=== PATIENT | female | born 1960 | race Caucasian/White ===

== ENCOUNTER 2016-09-06 23:13 | Inpatient (IN) | payer OTHER ==
[~2016-09-06] VITALS: Ht 154.9 cm; Wt 64.8 kg
[2016-09-06] MEDS ORDERED: DiphenhydrAMINE HCL 50 MG/ML VIAL IV STA (23:33)
[2016-09-06] MEDS ORDERED: METOCLOPRAMIDE HCL INJ 5 MG/ML 2 ML VIAL IV STA (23:33)
[2016-09-06] MEDS ORDERED: SODIUM CHLORIDE 0.9% 1000ML 1,000 ML IV STA ×2 (23:33)
[2016-09-06 23:48] LABS: URINE APPEARANCE CLEAR (CLEAR); URINE BILIRUBIN NEG (NEG); URINE COLOR DK YELLOW; URINE EPITHELIAL CELL AUTO >30 /lpf (0-5); URINE NITRITE POS (NEG); URINE PH 6.5 (4.5-7.5); URINE SPECIFIC GRAVITY 1.024 (1.000-1.030); UROBILINOGEN NEG (NEG); ZZUR CULT IF INDIC CLEAN CATCH YES
[2016-09-06 23:55] LABS: MANUAL MICROSCOPIC REQUIRED? NO; REVIEW REQ? NO
[2016-09-07] VITALS (8 sets, daily range): BP systolic 106–143; BP diastolic 62–80; PULSE 68–83; TEMP 37–37.6; O2SAT 95–97; Ht 154.9 cm; Wt 64.8 kg
[2016-09-07] MEDS ORDERED: OPTIRAY 320 IV PRN
[2016-09-07] MEDS ORDERED: LEVO25TA PO (00:13)
[2016-09-07] MEDS ORDERED: LIOT25TA8 PO (00:13)
[2016-09-07] MEDS ORDERED: ZNTT/150 PO (00:14)
[2016-09-07] MEDS ORDERED: OMEP40CA41 PO (00:14)
[2016-09-07] MEDS ORDERED: PRED-301 PO (00:14)
[2016-09-07] MEDS ORDERED: SUCR1TAB29 PO (00:14)
[2016-09-07] MEDS ORDERED: NABU500T3 PO (00:15)
[2016-09-07] MEDS ORDERED: ETAN25IN2 INJ (00:15)
[2016-09-07] MEDS ORDERED: CYAN100020 PO (00:16)
[2016-09-07] MEDS ORDERED: FEXO1TAB58 PO (00:16)
[2016-09-07] MEDS ORDERED: CHOL1000 PO (00:16)
[2016-09-07] MEDS ORDERED: SUMA100T16 PO (00:16)
[2016-09-07 00:51] LABS: INR 1.1 (0.9-1.1); PARTIAL THROMBOPLASTIN RATIO 1.1; PROTHROMBIN TIME (PATIENT) 11.8 SECONDS (9.0-12.0)
[2016-09-07 01:00] LABS: ALT/SGPT 87 U/L (12-78); AST/SGOT 139 U/L (15-37); BLOOD UREA NITROGEN 12 mg/dl (7-18); BUN/CREATININE RATIO 28.3 (10-20); CALCIUM 7.9 mg/dl (8.5-10.1); CARBON DIOXIDE 29 mmol/L (21-32); CHLORIDE 112 mmol/L (98-107); CREATININE 0.41 mg/dl (0.60-1.20); GLUCOSE 83 mg/dl (70-99); MAGNESIUM 1.7 mg/dl (1.8-2.4); SODIUM 146 mmol/L (136-145)
[2016-09-07 01:11] LABS: ALKALINE PHOSPHATASE 106 U/L (45-117)
[2016-09-07 01:24] LABS: HEMATOCRIT 38.5 % (37-47); MEAN CELL VOLUME 84.4 fL (80-100); MEAN CORPUSCULAR HEMOGLOBIN 28.1 pg (25-34); MEAN CORPUSCULAR HGB CONC 33.2 g/dl (32-36); PLATELET COUNT 62 K/uL (130-400); RED BLOOD COUNT 4.56 M/uL (4.2-5.4); WHITE BLOOD COUNT 4.31 K/uL (4.8-10.8)
[2016-09-07 01:26] LABS: BASO % 0.5 %; BASO ABS # 0.02 K/uL (0-0.2); COMPLETE YES; EOS % 2.6 %; LYMPH ABS # 1.38 K/uL (1.2-3.4); MONO % 15.5 %; NEUT % 49.4 %; PLT ESTIMATE DECREASED
--- NOTE | 2016-09-07 03:41 | EMERGENCY ROOM VISIT NOTE ---
History First contact with patient: 23:18 Chief Complaint: ILLNESS Stated Complaint: DEHYDRATION,FATIGUE,WEAKNESS,DIARRHEA History of Present Illness The patient is a 55 year old female who presents to the Emergency Room with complaints of fatigue, weakness, dehydration, lower abdominal cramping with diarrhea for the past day. Patient describe the pain as cramping, ranging in severity 4 out of 10. She is on well water. No recent antibiotics. Several episodes of diarrhea today that is nonbloody nonblack and tarry nonbloody in nature. Patient denies chest pain, dyspnea, fever, chills, vomiting, back pain , urinary symptoms. She is tolerating by mouth fluids but has a lack of appetite. Patient currently being worked up for possible cirrhosis of the liver. She has hepatitis C and treated. No excessive amount of alcohol. No colonoscopy. No history diverticulitis. Review of Systems See HPI for pertinent positives & negatives. A total of 10 systems reviewed and were otherwise negative. Past Medical/Surgical History Medical Problems: (1) Weakness Hepatitis C, rheumatoid arthritis Social History Smoking Status: Former Smoker Alcohol Use: none Drug Use: none Housing Status: lives with family Current/Historical Medications Scheduled Cholecalciferol (Vitamin D3), 1 TAB PO DAILY Cyanocobalamin (Vitamin B12), 1,000 MCG PO DAILY Etanercept (Enbrel), 25 MG INJ 2XWK Fexofenadine-Pseudoephedrine (Yazmin-D 24 Hour Allergy), 1 TAB PO DAILY Levothyroxine Sodium (Synthroid), 25 MCG PO DAILY Liothyronine Sodium (Cytomel), 25 MCG PO DAILY Nabumetone (Relafen), 500 MG PO DAILY Omeprazole (Prilosec), 40 MG PO DAILY Prednisone (Prednisone), 5 MG PO DAILY Ranitidine (Zantac), 150 MG PO DAILY Sucralfate (Carafate), 1 GM PO DAILY Scheduled PRN Sumatriptan Succinate (Imitrex), 100 MG PO UD PRN for Migraine Allergies Coded Allergies: Sulfa Antibiotics (Verified Allergy, Severe, ANAPHYLAXIS, 09/07/16) Sulfamethoxazole w/Trimethoprim (Verified Allergy, Severe, ANAPHYLAXIS, ) Physical Exam Vital Signs Date Time Temp Pulse Resp B/P (MAP) Pulse Ox O2 Delivery O2 Flow Rate FiO2 09/07/16 02:54 78 18 129/75 96 Room Air 09/07/16 01:17 65 18 124/73 100 Room Air 09/06/16 23:16 36.7 82 18 112/61 96 Room Air Physical Exam VITALS: Vitals are noted on the nurse's note and reviewed by myself. Vital signs stable. GENERAL: Pleasant female dehydrated appearing and pale, nondiaphoretic, well- developed well-nourished. SKIN: The skin was without rashes, erythema, edema, or bruising. There is no tenting of the skin. Capillary reflex less than 2 seconds. HEAD: Normocephalic atraumatic. EARS: External auditory canals clear, tympanic membranes pearly givens without erythema or effusion bilaterally. EYES: Pupils equal round and reactive to light and accommodation. Conjunctivae without injection, sclerae without icterus. Extraocular movements intact. NOSE: Patent, turbinates without inflammation or discharge. No sinus tenderness. MOUTH: Mucous membranes mildly dry. Pharynx without erythema or exudate. Uvula midline. Airway patent. Tongue does not deviate. NECK: Supple without nuchal rigidity. No lymphadenopathy. No thyromegaly. Cervical spine is nontender. No JVD. HEART: Regular rate and rhythm without murmurs gallops or rubs. LUNGS: Clear to auscultation bilaterally without wheezes, rales or rhonchi. No dullness to percussion. No retractions or accessory muscle use. ABDOMEN: Positive bowel sounds x 4. Normal tympanic percussion. Soft, tender to palpation lower abdomen, without masses or organomegaly. Julio sign negative. No guarding or rebound tenderness.no CVA tenderness MUSCULOSKELETAL: No muscle atrophy, erythema, or edema noted. NEURO: Patient was alert and oriented to person place and time. Normal sensation to light and sharp touch. No focal neurological deficits. Medical Decision & Procedures Laboratory Results 09/07/16 00:32 Red Blood Count 4.56, Mean Corpuscular Volume 84.4, Mean Corpuscular Hemoglobin 28.1, Mean Corpuscular Hemoglobin Concent 33.2, Mean Platelet Volume 10.0, Neutrophils (%) (Auto) 49.4, Lymphocytes (%) (Auto) 32.0, Monocytes (%) (Auto) 15.5, Eosinophils (%) (Auto) 2.6, Basophils (%) (Auto) 0.5, Neutrophils # (Auto ) 2.13, Lymphocytes # (Auto) 1.38, Monocytes # (Auto) 0.67, Eosinophils # (Auto ) 0.11, Basophils # (Auto) 0.02 09/07/16 00:32 Test 09/06/16 23:25 09/07/16 00:01 09/07/16 00:32 Urine Color DK YELLOW Urine Appearance CLEAR (CLEAR) Urine pH 6.5 (4.5-7.5) Urine Specific [place] 1.024 (1.000-1.030) Urine Protein NEG (NEG) Urine Glucose (UA) NEG (NEG) Urine Ketones NEG (NEG) Urine Occult Blood NEG (NEG) Urine Nitrite POS (NEG) Urine Bilirubin NEG (NEG) Urine Urobilinogen NEG (NEG) Urine Leukocyte Esterase TRACE (NEG) Urine WBC (Auto) 1-5 /hpf (0-5) Urine RBC (Auto) 0-4 /hpf (0-4) Urine Hyaline Casts (Auto) 1-5 /lpf (0-5) Urine Epithelial Cells (Auto) >30 /lpf (0-5) Urine Bacteria (Auto) 4+ (NEG) Bedside Lactic Acid Venous 0.60 mmol/L (0.90-1.70) White Blood Count 4.31 K/uL (4.8-10.8) Red Blood Count 4.56 M/uL (4.2-5.4) Hemoglobin 12.8 g/dL (12.0-16.0) Hematocrit 38.5 % (37-47) Mean Corpuscular Volume 84.4 fL (80-100) Mean Corpuscular Hemoglobin 28.1 pg (25-34) Mean Corpuscular Hemoglobin Concent 33.2 g/dl (32-36) Platelet Count 62 K/uL (130-400) Mean Platelet Volume 10.0 fL (7.4-10.4) Neutrophils (%) (Auto) 49.4 % Lymphocytes (%) (Auto) 32.0 % Monocytes (%) (Auto) 15.5 % Eosinophils (%) (Auto) 2.6 % Basophils (%) (Auto) 0.5 % Neutrophils # (Auto) 2.13 K/uL (1.4-6.5) Lymphocytes # (Auto) 1.38 K/uL (1.2-3.4) Monocytes # (Auto) 0.67 K/uL (0.11-0.59) Eosinophils # (Auto) 0.11 K/uL (0-0.5) Basophils # (Auto) 0.02 K/uL (0-0.2) RDW Standard Deviation 47.2 fL (36.4-46.3) RDW Coefficient of Variation 15.2 % (11.5-14.5) Immature Granulocyte % (Auto) 0.0 % Immature Granulocyte # (Auto) 0.00 K/uL (0.00-0.02) Platelet Estimate DECREASED Red Blood Cell Morphology Unremarkable Prothrombin Time 11.8 SECONDS (9.0-12.0) Prothromb Time International Ratio 1.1 (0.9-1.1) Activated Partial Thromboplast Time 29.0 SECONDS (21.0-31.0) Partial Thromboplastin Ratio 1.1 Anion Gap 5.0 mmol/L (3-11) Est Creatinine Clear Calc Drug Dose 135.9 ml/min Estimated GFR () 136.7 Estimated GFR (Non- 118.0 BUN/Creatinine Ratio 28.3 (10-20) Calcium Level 7.9 mg/dl (8.5-10.1) Magnesium Level 1.7 mg/dl (1.8-2.4) Total Bilirubin 0.8 mg/dl (0.2-1) Aspartate Amino Transf (AST/SGOT) 139 U/L (15-37) Alanine Aminotransferase (ALT/SGPT) 87 U/L (12-78) Alkaline Phosphatase 106 U/L (45-117) Troponin I < 0.015 ng/ml (0-0.045) Total Protein 5.3 gm/dl (6.4-8.2) Albumin 2.7 gm/dl (3.4-5.0) Globulin 2.6 gm/dl (2.5-4.0) Albumin/Globulin Ratio 1.0 (0.9-2) Thyroid Stimulating Hormone (TSH) 1.970 uIu/ml (0.300-4.500) Medications Administered Medications (Trade) Dose Ordered Sig/Montse Route Start Time Stop Time Status Last Admin Dose Admin Sodium Chloride 1,000 ml @ 999 mls/hr Q1H1M STAT IV 09/06/16 23:33 09/07/16 00:33 DC 09/06/16 23:58 999 MLS/HR Sodium Chloride 1,000 ml @ 125 mls/hr Q8H STAT IV 09/06/16 23:33 09/07/16 07:32 09/06/16 23:33 125 MLS/HR Metoclopramide HCl (Reglan Inj) 10 mg NOW STAT IV 09/06/16 23:33 09/06/16 23:37 DC 09/06/16 23:58 10 MG Diphenhydramine HCl (Benadryl Inj) 12.5 mg NOW STAT IV 09/06/16 23:33 09/06/16 23:37 DC 09/06/16 23:58 12.5 MG ED Course Prior records/ancillary studies reviewed. Triage Nursing notes reviewed. Additional history obtained from family. The patient's history was concerning for abdominal pain. Differential diagnosis: Etiologies such as diarrheal illness, C. difficile, electrolyte abnormality, dehydration, appendicitis, diverticulitis, PUD, biliary pathology, UTI, pancreatitis, obstruction, mesenteric ischemia, aortic pathology, infections, inflammatory bowel disease, renal colic, as well as others were entertained. Physical examination findings: As above. ER treatment provided: IV fluids On reassessment the patient felt better. Diagnostics interpreted by me: ECG: Normal sinus, normal intervals, no acute ST-T wave changes. Impression normal sinus rhythm interpreted by myself The labs revealed thrombocytopenia. Negative lactic acid, elevated LFTs. Normal coags Imaging studies: CT concerning for colitis Consultation: A consultation was placed with the hospitalist, Dr. Lozano the case was discussed and diagnostics were reviewed. The patient was evaluated in the ER for further treatment. Exam and history seem consistent with weakness, diarrhea and possible colitis. Patient was still externally week. She will be evaluated by medicine for possible admission. She is unable to give a stool specimen. She was hydrated as above. Patient has known hep C and most likely her elevated LFTs are from this. By the evaluation outlined above emergent etiologies such as appendicitis, diverticulitis, PUD, biliary pathology, UTI, pancreatitis, obstruction, mesenteric ischemia, aortic pathology, renal colic, as well as others were deemed relatively unlikely. The pt informed about the findings as listed above. All questions were answered and pleased with the treatment. Case reviewed with my attending. Medical Decision As above Impression Primary Impression: Weakness Additional Impressions: Diarrhea Colitis Thrombocytopenia Departure Information Dispostion Being Evaluated By Hospitalist Condition FAIR Referrals No Doctor, Assigned (PCP) Patient Instructions My [facility] Problem Qualifiers Additional Impressions: Diarrhea Diarrhea type: unspecified type Qualified Codes: R19.7 - Diarrhea, unspecified
[2016-09-07] MEDS: MAGNESIUM SULFATE 1GM / D5W 1 GM in PREMIXED IN D5W 100 ML IV SCH ×2 (03:45→04:45)
[2016-09-07] MEDS ORDERED: MAGNESIUM SULFATE 1GM / D5W 1 GM BAG ONE (04:30)
[2016-09-07] MEDS ORDERED: ONDANSETRON INJ 2 MG/ML 2 ML VIAL IV PRN (04:45)
[2016-09-07] MEDS ORDERED: MoRPHine SULFATE 2 MG/ML CARP IV PRN (05:00)
[2016-09-07] MEDS ORDERED: HYDROCODONE/ACETAMOPHEN 5/325MG TAB PO PRN (05:00)
--- NOTE | 2016-09-07 05:17 | History and Physical ---
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 The weakness has been ongoing as she suffers from uncontrolled joint pain from her RA. Approximately 6 months ago she was taken off narcotics and has been doing poorly with a very poor QOL since per her . She was recently seen by Dr. Da Silva in the [facility] clinic for consideration of antiviral therapy for HCV. For the last two days, she reports low PO intake, no vomiting or nausea, the presence of a sharp abdominal pain that doesn't radiate and is located around her umbilicus, no UTI symptoms such as dysuria or urgency, no chest pain or shortness of breath. She reports a headache that is generalized and has a h/o migraines. Head CT was performed and is negative for acute intracranial process. She is mentating well, however, is very lethargic as she was just given Benadryl for a headache here in the ER. reports about 8 BM. She denies recent antibiotic use and hasn't had a colonoscopy. Last hospitalization was in [facility] in [place], [place] for a MRSA wound infection around her breast, which is well-healed. She does drink well water. denies any recent travel. CT a/p reveals diffuse colonic mural thickening consistent with colitis. She is on an NSAID chronically for her arthritis which is known to cause diarrhea. She also reports increased pain in her hands, nicki in MCP joints consistent with a flare x 2 weeks. She reports not being able to get ahold of her Occupational Therapy Asst in [place], but states that she was scheduled to see him as an outpatient later this week. She recently moved back to the area and lives with her in [place]. She has tried to establish care here with a PCP, but no one will take her per . Past Medical/Surgical History Medical Problems: (1) Ambulatory dysfunction Status: Chronic (2) Chronic pain Status: Chronic (3) Cirrhosis Status: Chronic (4) GERD (gastroesophageal reflux disease) Status: Chronic (5) H/O methicillin resistant Staphylococcus aureus Status: Chronic (6) H/O peptic ulcer Status: Chronic (7) HCV (hepatitis C virus) Status: Chronic (8) Hypothyroidism Status: Chronic (9) Juvenile rheumatoid arthritis Status: Chronic (10) Migraine Status: Chronic (11) Weakness Status: Chronic Surgical Problems: (1) H/O: Status: Chronic (2) S/P shoulder replacement Status: Chronic (3) Status post incision and drainage Status: Chronic Family History FH: cancer FATHER Social History Smoking Status: Former Smoker Smokeless Tobacco Use: No Alcohol Use: none Drug Use: none Marital Status: Housing status: lives with significant other Occupational Status: unemployed Immunizations History of Influenza Vaccine: Yes Influenza Vaccine Date: Oct 19, 2014 History of Tetanus Vaccine?: Unknown History of Pneumococcal: Yes Pneumococcal Date: Oct 19, 2014 History of Hepatitis B Vaccine: Unknown Multi-Drug Resistant Organisms History of MDRO: Yes Type of MDRO: MRSA Allergies Coded Allergies: Sulfa Antibiotics (Verified Allergy, Severe, ANAPHYLAXIS, 09/07/16) Sulfamethoxazole w/Trimethoprim (Verified Allergy, Severe, ANAPHYLAXIS, ) Home Medications Scheduled Cholecalciferol (Vitamin D3), 1 TAB PO DAILY Cyanocobalamin (Vitamin B12), 1,000 MCG PO DAILY Etanercept (Enbrel), 25 MG INJ 2XWK Fexofenadine-Pseudoephedrine (Yazmin-D 24 Hour Allergy), 1 TAB PO DAILY Levothyroxine Sodium (Synthroid), 25 MCG PO DAILY Liothyronine Sodium (Cytomel), 25 MCG PO DAILY Nabumetone (Relafen), 500 MG PO DAILY Omeprazole (Prilosec), 40 MG PO DAILY Prednisone (Prednisone), 5 MG PO DAILY Ranitidine (Zantac), 150 MG PO DAILY Sucralfate (Carafate), 1 GM PO DAILY Scheduled PRN Sumatriptan Succinate (Imitrex), 100 MG PO UD PRN for Migraine Review of Systems At least ten systems reviewed and negative except as indicated in HPI. Physical Exam Vital Signs Date Time Temp Pulse Resp B/P (MAP) Pulse Ox O2 Delivery O2 Flow Rate FiO2 09/07/16 04:38 81 18 111/68 96 Room Air 09/07/16 02:54 78 18 129/75 96 Room Air 09/07/16 01:17 65 18 124/73 100 Room Air 09/06/16 23:16 36.7 82 18 112/61 96 Room Air GEN: WNWD, in no acute distress, alert and appropriate but easily falls asleep/ lethargic after benadryl HEENT: NC/AT, PERRL, normal non-icteric sclerae, MMM, pharynx non-acute, no LAD CARDIO: reg rate, S1/2 heard without m/g/r LUNGS: coarse breath sounds throughout all lung farley, no rales or wheezes, poor effort ABD: soft, TTP in LLQ, +BS, non-distended, no rebound or guarding EXTREMITY: RP and DP palpable 2+ bilat, no LE swelling or edema, extremities are warm and well-perfused NEURO: no gross focal deficits, but limited evaluation as patient mostly asleep MUSC: moves all extremities equally SKIN: warm and dry, no jaundice. Healed scars around L breast area. Diagnostics Laboratory Results 09/07/16 00:32 Red Blood Count 4.56, Mean Corpuscular Volume 84.4, Mean Corpuscular Hemoglobin 28.1, Mean Corpuscular Hemoglobin Concent 33.2, Mean Platelet Volume 10.0, Neutrophils (%) (Auto) 49.4, Lymphocytes (%) (Auto) 32.0, Monocytes (%) (Auto) 15.5, Eosinophils (%) (Auto) 2.6, Basophils (%) (Auto) 0.5, Neutrophils # (Auto ) 2.13, Lymphocytes # (Auto) 1.38, Monocytes # (Auto) 0.67, Eosinophils # (Auto ) 0.11, Basophils # (Auto) 0.02 09/07/16 00:32 Test 09/06/16 23:25 09/07/16 00:01 09/07/16 00:32 09/07/16 04:55 Urine Color DK YELLOW Urine Appearance CLEAR (CLEAR) Urine pH 6.5 (4.5-7.5) Urine Specific [place] 1.024 (1.000-1.030) Urine Protein NEG (NEG) Urine Glucose (UA) NEG (NEG) Urine Ketones NEG (NEG) Urine Occult Blood NEG (NEG) Urine Nitrite POS (NEG) Urine Bilirubin NEG (NEG) Urine Urobilinogen NEG (NEG) Urine Leukocyte Esterase TRACE (NEG) Urine WBC (Auto) 1-5 /hpf (0-5) Urine RBC (Auto) 0-4 /hpf (0-4) Urine Hyaline Casts (Auto) 1-5 /lpf (0-5) Urine Epithelial Cells (Auto) >30 /lpf (0-5) Urine Bacteria (Auto) 4+ (NEG) Bedside Lactic Acid Venous 0.60 mmol/L (0.90-1.70) White Blood Count 4.31 K/uL (4.8-10.8) Red Blood Count 4.56 M/uL (4.2-5.4) Hemoglobin 12.8 g/dL (12.0-16.0) Hematocrit 38.5 % (37-47) Mean Corpuscular Volume 84.4 fL (80-100) Mean Corpuscular Hemoglobin 28.1 pg (25-34) Mean Corpuscular Hemoglobin Concent 33.2 g/dl (32-36) Platelet Count 62 K/uL (130-400) Mean Platelet Volume 10.0 fL (7.4-10.4) Neutrophils (%) (Auto) 49.4 % Lymphocytes (%) (Auto) 32.0 % Monocytes (%) (Auto) 15.5 % Eosinophils (%) (Auto) 2.6 % Basophils (%) (Auto) 0.5 % Neutrophils # (Auto) 2.13 K/uL (1.4-6.5) Lymphocytes # (Auto) 1.38 K/uL (1.2-3.4) Monocytes # (Auto) 0.67 K/uL (0.11-0.59) Eosinophils # (Auto) 0.11 K/uL (0-0.5) Basophils # (Auto) 0.02 K/uL (0-0.2) RDW Standard Deviation 47.2 fL (36.4-46.3) RDW Coefficient of Variation 15.2 % (11.5-14.5) Immature Granulocyte % (Auto) 0.0 % Immature Granulocyte # (Auto) 0.00 K/uL (0.00-0.02) Platelet Estimate DECREASED Red Blood Cell Morphology Unremarkable Prothrombin Time 11.8 SECONDS (9.0-12.0) Prothromb Time International Ratio 1.1 (0.9-1.1) Activated Partial Thromboplast Time 29.0 SECONDS (21.0-31.0) Partial Thromboplastin Ratio 1.1 Anion Gap 5.0 mmol/L (3-11) Est Creatinine Clear Calc Drug Dose 135.9 ml/min Estimated GFR () 136.7 Estimated GFR (Non- 118.0 BUN/Creatinine Ratio 28.3 (10-20) Calcium Level 7.9 mg/dl (8.5-10.1) Magnesium Level 1.7 mg/dl (1.8-2.4) Total Bilirubin 0.8 mg/dl (0.2-1) Aspartate Amino Transf (AST/SGOT) 139 U/L (15-37) Alanine Aminotransferase (ALT/SGPT) 87 U/L (12-78) Alkaline Phosphatase 106 U/L (45-117) Troponin I < 0.015 ng/ml (0-0.045) Total Protein 5.3 gm/dl (6.4-8.2) Albumin 2.7 gm/dl (3.4-5.0) Globulin 2.6 gm/dl (2.5-4.0) Albumin/Globulin Ratio 1.0 (0.9-2) Thyroid Stimulating Hormone (TSH) 1.970 uIu/ml (0.300-4.500) Date/Time Source Procedure Growth Status 09/07/16 04:55 Stool C.difficile Toxin B Gene (PCR) Pending Received 09/06/16 23:25 Urine , Clean Catch Urine Culture Pending Received Results Past 24 Hours Test 09/06/16 23:25 09/07/16 00:01 09/07/16 00:32 Range/Units Urine Color DK YELLOW Urine Appearance CLEAR CLEAR Urine pH 6.5 4.5-7.5 Urine Specific [place] 1.024 1.000-1.030 Urine Protein NEG NEG Urine Glucose (UA) NEG NEG Urine Ketones NEG NEG Urine Occult Blood NEG NEG Urine Nitrite POS NEG Urine Bilirubin NEG NEG Urine Urobilinogen NEG NEG Urine Leukocyte Esterase TRACE NEG Urine WBC (Auto) 1-5 0-5 /hpf Urine RBC (Auto) 0-4 0-4 /hpf Urine Hyaline Casts (Auto) 1-5 0-5 /lpf Urine Epithelial Cells (Auto) >30 0-5 /lpf Urine Bacteria (Auto) 4+ NEG Bedside Lactic Acid Venous 0.60 0.90-1.70 mmol/L White Blood Count 4.31 4.8-10.8 K/uL Red Blood Count 4.56 4.2-5.4 M/uL Hemoglobin 12.8 12.0-16.0 g/dL Hematocrit 38.5 37-47 % Mean Corpuscular Volume 84.4 80-100 fL Mean Corpuscular Hemoglobin 28.1 25-34 pg Mean Corpuscular Hemoglobin Concent 33.2 32-36 g/dl Platelet Count 62 130-400 K/uL Mean Platelet Volume 10.0 7.4-10.4 fL Neutrophils (%) (Auto) 49.4 % Lymphocytes (%) (Auto) 32.0 % Monocytes (%) (Auto) 15.5 % Eosinophils (%) (Auto) 2.6 % Basophils (%) (Auto) 0.5 % Neutrophils # (Auto) 2.13 1.4-6.5 K/uL Lymphocytes # (Auto) 1.38 1.2-3.4 K/uL Monocytes # (Auto) 0.67 0.11-0.59 K/uL Eosinophils # (Auto) 0.11 0-0.5 K/uL Basophils # (Auto) 0.02 0-0.2 K/uL RDW Standard Deviation 47.2 36.4-46.3 fL RDW Coefficient of Variation 15.2 11.5-14.5 % Immature Granulocyte % (Auto) 0.0 % Immature Granulocyte # (Auto) 0.00 0.00-0.02 K/uL Platelet Estimate DECREASED Red Blood Cell Morphology Unremarkable Prothrombin Time 11.8 9.0-12.0 SECONDS Prothromb Time International Ratio 1.1 0.9-1.1 Activated Partial Thromboplast Time 29.0 21.0-31.0 SECONDS Partial Thromboplastin Ratio 1.1 Sodium Level 146 136-145 mmol/L Potassium Level 4.0 3.5-5.1 mmol/L Chloride Level 112 98-107 mmol/L Carbon Dioxide Level 29 21-32 mmol/L Anion Gap 5.0 3-11 mmol/L Blood Urea Nitrogen 12 7-18 mg/dl Creatinine 0.41 0.60-1.20 mg/dl Est Creatinine Clear Calc Drug Dose 135.9 ml/min Estimated GFR () 136.7 Estimated GFR (Non- 118.0 BUN/Creatinine Ratio 28.3 10-20 Random Glucose 83 70-99 mg/dl Calcium Level 7.9 8.5-10.1 mg/dl Magnesium Level 1.7 1.8-2.4 mg/dl Total Bilirubin 0.8 0.2-1 mg/dl Aspartate Amino Transf (AST/SGOT) 139 15-37 U/L Alanine Aminotransferase (ALT/SGPT) 87 12-78 U/L Alkaline Phosphatase 106 45-117 U/L Troponin I < 0.015 0-0.045 ng/ml Total Protein 5.3 6.4-8.2 gm/dl Albumin 2.7 3.4-5.0 gm/dl Globulin 2.6 2.5-4.0 gm/dl Albumin/Globulin Ratio 1.0 0.9-2 Thyroid Stimulating Hormone (TSH) 1.970 0.300-4.500 uIu/ml Microbiology Results 09/06/16 Urine Culture, Received Pending Diagnostic Radiology CT a/p: diffuse colonic mural thickening consistent with colitis; cirrhosis with nodular liver; portal HTN; splenomegaly CT head: no acute IC process EKG SR 72, no St changes. Impression Assessment and Plan 55 yo F with acute diarrhea and nonspecific colitis. 1. Colitis with diarrhea-etiologies includes but not limited to infectious, inflammatory, ischemic less likely with normal lactate, or adverse drug effect from Nabumetone. Stool studies ordered, will cover empirically with Cipro/ Flagyl. Consulted GI for assistance in setting of other chronic GI issues. Cont supportive care with IVF until patient tolerating PO better, antiemetics and pain control as needed. Hold NSAIDs at this time. 2. Weakness-severe and is related to her chronic pain from her RA. PT/OT to evaluate 3. Chronic pain 2/2 RA-currently reports flare x 2 weeks. Taking daily NSAIDs , however, this is not helping. On prednisone 5mg PO daily at baseline. Consider Rheum consult to help with flare. Pt continues on Enbrel twice weekly. 4. Ambulatory dysfunction 2/2 comorbidities-PT/OT to evaluate; d/c planning assistance to help with needs around the home. 5. Cirrhosis-appears compensated, mild elevation in LFTs, no elev in bilirubin , abdominal pain is not generalized and no pain in RUQ. Currently in the process of workup as outpatient per GI-pt denies any fluid retention or weight gain and exhibits no confusion 6. HCV-untreated at this point. 7. Hypomagnesemia 2/2 diarrhea-replace IV 8. Asymptomatic bacteriuria-covering empirically with Cipro (above) while awaiting culture results. 9. h/o MRSA 10. thrombocytopenia-chronic, poss related to cirrhosis DVT proph-SCDs, thrombocytopenia FULL CODE Dispo-to med/surg. DO Rodney BatistaPalmdale Regional Medical Centerist Level of Care Med/Surg Resuscitation Status FULL RESUSCITATION VTE Prophylaxis VTE Risk Assessment Done? Y/N: Yes Risk Level: Moderate Given or contraindicated: SCD's, Contraindicated
--- NOTE | 2016-09-07 06:51 | DIAGNOSTIC IMAGING REPORT ---
CHEST ONE VIEW PORTABLE CLINICAL HISTORY: weakness, coarse breath sounds on exam throughout COMPARISON STUDY: No previous studies for comparison. FINDINGS: The heart is the upper limits of normal in size. There is mild interstitial thickening. There is no lobar consolidation. There are no pleural effusions. There are postsurgical changes involving the right shoulder.[ IMPRESSION: Mild interstitial thickening. No evidence of focal pulmonary consolidation Electronically signed by: Vincent Rodrigues M.D. 09/07/2016 6:49 AM Dictated Date/Time: 09/07/2016 6:49 AM
--- NOTE | 2016-09-07 07:05 | DIAGNOSTIC IMAGING REPORT ---
CT HEAD WITHOUT CONTRAST (CT) CLINICAL HISTORY: Severe headache COMPARISON STUDY: No previous studies for comparison. TECHNIQUE: Axial CT of the brain is performed from the vertex to the skull base. IV contrast was not administered for this examination. CT DOSE: 537.48 mGy.cm FINDINGS: No intra or extra-axial mass lesions are visualized. There is no CT evidence of acute cortical infarction. There is no evidence of midline shift. There is no acute hemorrhage. No calvarial fractures are visualized. There is disconjugate ocular gaze There is no evidence of pathologic ventricular dilatation. There is no evidence of acute sinusitis IMPRESSION: Disconjugate ocular gaze. No acute intracranial findings. Electronically signed by: Vincent Rodrigues M.D. 09/07/2016 7:04 AM Dictated Date/Time: 09/07/2016 7:03 AM
--- NOTE | 2016-09-07 07:20 | DIAGNOSTIC IMAGING REPORT ---
ABD/PELVIS IV CONTRAST ONLY HISTORY:55 yearsFemalelower abd pain, acute in onset. COMPARISON: Chest radiograph of same day TECHNIQUE: Multiple axial CT images of the abdomen and pelvis were obtained following the intravenous administration of 115 mL Optiray 320. FINDINGS: There are scattered probably peripheral Reclast opacities of the lung bases with areas of mosaic attenuation suggesting atelectasis with some air trapping. Evaluation of the lung bases is limited secondary to patient motion. No pneumoperitoneum is identified. Inferior cardiac chambers appear unremarkable. There is mild marginal nodularity of the liver with trace perihepatic ascites. Mild periportal edema is also noted. The spleen is enlarged measuring up to 16 cm in length. The gallbladder, pancreas and adrenal glands appear to be within normal limits. There are prominent hepatorenal varices noted with additional smaller varices seen near the oksana hepatis. There is a 3 mm nonobstructing calculus of the superior pole left kidney. 5 mm low attenuating lesion of the superior pole right kidney is too small to characterize however would statistically favor a benign cyst. No hydronephrosis. The urinary bladder is unremarkable. Prior hysterectomy. Small cystic lesion of the left adnexum, 2.0 x 1.2 cm is nonspecific. There is moderate atherosclerotic plaquing of the abdominal aorta and branch vessels. No pathologic adenopathy is identified. There is no bowel obstruction. Trace pelvic ascites is noted. There is mucosal hyperemia with circumferential wall thickening involving the majority of the colon. There is no evidence of acute appendicitis. The appendix is seen nicely on image 59 of the axial series and appears to be noninflamed and nondilated. The soft tissues are unremarkable. Multiple injection granulomas involve the subcutaneous tissues of the bilateral buttocks. The bones are intact. Large kraft node involves the superior endplate of L3. IMPRESSION: 1. Mild surface nodularity of the liver with splenomegaly and trace abdominal and pelvic ascites suggests cirrhotic liver disease with stigmata of portal hypertension. Correlate with LFTs. 2. Circumferential wall thickening involving the majority of the colon may be secondary to underlying hypoproteinemia or colitis from infectious or inflammatory cause. 3. 3 mm nonobstructing calculus of the superior pole left kidney. 4. Prior hysterectomy. The above report was generated using voice recognition software. It may contain grammatical, syntax or spelling errors. Electronically signed by: Scot Sol M.D. 09/07/2016 7:19 AM Dictated Date/Time: 09/07/2016 7:08 AM
[2016-09-07] MEDS: METRONIDAZOLE / NSS 500 MG in PREMIXED NSS 100 ML IV SCH ×3 (07:28→23:39)
[2016-09-07] MEDS: SODIUM CHLORIDE 0.9% 1000ML 1,000 ML IV SCH ×2 (07:29→14:35)
[2016-09-07] MEDS: LEVOTHYROXINE 25 MCG TAB PO SCH (07:29)
[2016-09-07] MEDS: PANTOprazole SOD 40 MG TAB PO SCH (07:30)
[2016-09-07] MEDS: RANITIDINE HCL 150 MG TAB PO SCH (07:30)
[2016-09-07] MEDS: LIOTHYRONINE SODIUM 25 MCG TAB PO SCH (07:30)
[2016-09-07] MEDS: [UNRECOGNIZED DRUG - OTHER] SCH ×2 (09:30→16:00)
[2016-09-07] MEDS: CIPROFLOXACIN / D5W 400 MG in PREMIXED IN D5W 200 ML IV SCH ×2 (09:30→20:13)
--- NOTE | 2016-09-07 12:56 | Gastrointestinal Consultation ---
Gastrointestinal Consultation Date of Consultation: Sep 07, 2016 Attending Physician: Julianne Gage Consulting Physician: Earnest Altman Reason for Consultation: Colitis, cirrhosis, HCV History of Present Illness Patient is a 55 year old female w Genotype 3a, F4 fibrosis (cirrhosis), HCV established w Dr. Glaser in GI office, seen for diarrhea. She started having profuse watery diarrhea 2 days prior to admission. Rentz very weak, and having assocaited abd pain around periumbilical area. She denies any n/v, dysuria, fever, chills, CP, SOB. She does have migraine HAs, CT head on admission negative. Denies any sick contact, no well water. Cdiff negative. Stool cx and Giardia pending. CT abd/pelvis showed: 1. Mild surface nodularity of the liver with splenomegaly and trace abdominal and pelvic ascites suggests cirrhotic liver disease with stigmata of portal hypertension. Correlate with LFTs. 2. Circumferential wall thickening involving the majority of the colon may be secondary to underlying hypoproteinemia or colitis from infectious or inflammatory cause. 3. 3 mm nonobstructing calculus of the superior pole left kidney. 4. Prior hysterectomy. Labs reviewed: H/H stable, Plt low at 62, no coagulopathy. CMP showed low Ca and Mg, BUN/Cr normal. LFTs elevated but at baseline: Tbili 0.8, AST/ALT 139/87 , AP 106. Never had EGD for variceal screening or colonoscopy before - had refused them in the past for no specific reasons. Past Medical/Surgical History Medical Problems: (1) Colitis Status: Acute (2) Diarrhea Status: Acute (3) Thrombocytopenia Status: Acute Past Medical History: Juvenile RA GERD MRSA PUD Hypothyroidism Past Surgical History: Csection Shoulder replacement I&D Family History FH: cancer FATHER Social History Smoking Status: Never Smoker Alcohol Use: none Drug Use: none Marital Status: Housing Status: lives with family Occupation Status: unemployed Allergies Coded Allergies: Sulfa Antibiotics (Verified Allergy, Severe, ANAPHYLAXIS, 09/07/16) Sulfamethoxazole w/Trimethoprim (Verified Allergy, Severe, ANAPHYLAXIS, ) Current Medications Home Meds and Scripts Medications Dose Route/Sig Max Daily Dose Days Date Category Dose Instructions Vitamin B12 (Cyanocobalamin) 1,000 Mcg Tab 1,000 Mcg PO DAILY 09/07/16 Reported Vitamin D3 (Cholecalciferol) 1,000 Unit Tab 1 Tab PO DAILY 90 09/07/16 Reported Imitrex (Sumatriptan Succinate) 100 Mg Tab 100 Mg PO UD PRN 09/07/16 Reported Yazmin-D 24 Hour Allergy (Fexofenadine-Pseudoephedrine) 1 Tab Tab 1 Tab PO DAILY 30 09/07/16 Reported Enbrel (Etanercept) 25 Mg Inj 25 Mg INJ 2XWK 09/07/16 Reported TUESDAYS & FRIDAYS Relafen (Nabumetone) 500 Mg Tab 500 Mg PO DAILY 09/07/16 Reported Zantac (Ranitidine HCl) 150 Mg Tab 150 Mg PO DAILY 09/07/16 Reported Prilosec (Omeprazole) 40 Mg Cap 40 Mg PO DAILY 09/07/16 Reported Carafate (Sucralfate) 1 Gm Tab 1 Gm PO DAILY 09/07/16 Reported Prednisone 5 Mg Tab 5 Mg PO DAILY 09/07/16 Reported Synthroid (Levothyroxine Sodium) 25 Mcg Tab 25 Mcg PO DAILY 09/07/16 Reported Cytomel (Liothyronine Sodium) 25 Mcg Tab 25 Mcg PO DAILY 09/07/16 Reported Review of Systems Constitutional: No fever, No chills Respiratory: No cough, No shortness of breath Cardiac: No chest pain Abdomen: + see HPI, + pain, + diarrhea (No BMs since admission recorded), No nausea, No vomiting Female : No dysuria, No urinary frequency Endo: + fatigue Physical Exam Date Time Temp Pulse Resp B/P (MAP) Pulse Ox O2 Delivery O2 Flow Rate FiO2 09/07/16 11:51 37.6 77 14 116/77 (90) 96 Room Air 09/07/16 08:30 97 Room Air 09/07/16 07:49 37.1 83 16 114/78 (90) 97 Room Air 09/07/16 05:40 37.5 76 18 143/73 95 Room Air 09/07/16 04:38 81 18 111/68 96 Room Air 09/07/16 02:54 78 18 129/75 96 Room Air 09/07/16 01:17 65 18 124/73 100 Room Air 09/06/16 23:16 36.7 82 18 112/61 96 Room Air General Appearance: WD/WN, no apparent distress Eyes: normal inspection, PERRL, EOMI Neck: supple, no JVD, trachea midline Respiratory/Chest: normal breath sounds, no respiratory distress, no accessory muscle use Cardiovascular: regular rate, rhythm, no gallop, no murmur Abdomen: normal bowel sounds, non tender, soft Extremities: normal inspection, no pedal edema, no calf tenderness Neurologic/Psych: alert, normal mood/affect, oriented x 3 Skin: normal color, no jaundice, no rash Laboratory Results Last 24 Hours Test 09/06/16 23:25 09/07/16 00:01 09/07/16 00:02 09/07/16 00:32 Urine Color DK YELLOW Urine Appearance CLEAR Urine pH 6.5 Urine Specific [place] 1.024 Urine Protein NEG Urine Glucose (UA) NEG Urine Ketones NEG Urine Occult Blood NEG Urine Nitrite POS Urine Bilirubin NEG Urine Urobilinogen NEG Urine Leukocyte Esterase TRACE Urine WBC (Auto) 1-5 /hpf Urine RBC (Auto) 0-4 /hpf Urine Hyaline Casts (Auto) 1-5 /lpf Urine Epithelial Cells (Auto) >30 /lpf Urine Bacteria (Auto) 4+ Bedside Lactic Acid Venous 0.60 mmol/L Bedside Troponin I ng/ml White Blood Count 4.31 K/uL Red Blood Count 4.56 M/uL Hemoglobin 12.8 g/dL Hematocrit 38.5 % Mean Corpuscular Volume 84.4 fL Mean Corpuscular Hemoglobin 28.1 pg Mean Corpuscular Hemoglobin Concent 33.2 g/dl Platelet Count 62 K/uL Mean Platelet Volume 10.0 fL Neutrophils (%) (Auto) 49.4 % Lymphocytes (%) (Auto) 32.0 % Monocytes (%) (Auto) 15.5 % Eosinophils (%) (Auto) 2.6 % Basophils (%) (Auto) 0.5 % Neutrophils # (Auto) 2.13 K/uL Lymphocytes # (Auto) 1.38 K/uL Monocytes # (Auto) 0.67 K/uL Eosinophils # (Auto) 0.11 K/uL Basophils # (Auto) 0.02 K/uL RDW Standard Deviation 47.2 fL RDW Coefficient of Variation 15.2 % Immature Granulocyte % (Auto) 0.0 % Immature Granulocyte # (Auto) 0.00 K/uL Platelet Estimate DECREASED Red Blood Cell Morphology Unremarkable Prothrombin Time 11.8 SECONDS Prothromb Time International Ratio 1.1 Activated Partial Thromboplast Time 29.0 SECONDS Partial Thromboplastin Ratio 1.1 Sodium Level 146 mmol/L Potassium Level 4.0 mmol/L Chloride Level 112 mmol/L Carbon Dioxide Level 29 mmol/L Anion Gap 5.0 mmol/L Blood Urea Nitrogen 12 mg/dl Creatinine 0.41 mg/dl Est Creatinine Clear Calc Drug Dose 135.9 ml/min Estimated GFR () 136.7 Estimated GFR (Non- 118.0 BUN/Creatinine Ratio 28.3 Random Glucose 83 mg/dl Calcium Level 7.9 mg/dl Magnesium Level 1.7 mg/dl Total Bilirubin 0.8 mg/dl Aspartate Amino Transf (AST/SGOT) 139 U/L Alanine Aminotransferase (ALT/SGPT) 87 U/L Alkaline Phosphatase 106 U/L Troponin I < 0.015 ng/ml Total Protein 5.3 gm/dl Albumin 2.7 gm/dl Globulin 2.6 gm/dl Albumin/Globulin Ratio 1.0 Thyroid Stimulating Hormone (TSH) 1.970 uIu/ml Test 09/07/16 04:55 09/07/16 11:58 Ammonia 35.0 umol/L Impression Patient is a 55 year old female w HCV, cirrhosis (MELD 7), currently admitted for acute diarrhea. Stool cx, Giardia pending. Cdiff negative. CT abd/pelvis showed circumferential wall thickening involving the majority of the colon may be secondary to underlying hypoproteinemia or colitis from infectious or inflammatory cause. Plan - Continue Cipro/Flagyl for at least 7-10 days - F/U Giardia and Stool cx results. Cdiff negative. - She will need EGD for variceal screening and also Colonoscopy to r/o IBD. These can be done in outpt setting. In fact should wait at least 7 days after Cipro/Flagyl started before we should prep her for the colonoscopy. - HCV: Genotype 3a, F4 fibrosis. She will need to f/u w Dr. Glaser on 10/13 to determine if she is an eligible candidate for treatment (possibly Epclusa x 12 weeks). Her compliance was questionable I have personally seen the patient with SABI Triplett on 09/07/2016. Her note reflects my exam and findings. I agree with her impression and plan. Will need out patient colonoscopy. Earnest Altman M.D.
--- NOTE | 2016-09-07 15:07 | Progress Note ---
Internal Med Progress Note Date of Service: Sep 07, 2016. Provider Documentation: SUBJECTIVE: The patient was seen and examined Very lethargic and drowsy Falls asleep while talking to me Denies any other distress OBJECTIVE: Vital Signs-as noted below Exam: General-No distress at rest Very drowsy and sleepy Eyes-normal ENT-normal Neck-supple Lungs-Clear to ausucltate bilaterally Heart-Regular,no murmur appreciated Abdomen-Benign,no masses ,bowel sound present Extremities-Trace edema bilaterally Has severe rheumatoid changes in hands Neuro-AA Very weak and lethargic Lab data as noted below. ASSESSMENT & PLAN: Gil Colitis Could be infectious, inflammatory, ischemic less likely with normal lactate, or adverse drug effect from Nabumetone. Stool studies ordered-negative Started on Cipro/Flagyl. Appreciate GI input and recommendation Still having diarrhea Weakness and Drowsiness Likely from Medication for chronic pain secondary to RA. Cirrhosis ,Hep C Ammonia level-35 PT/OT to evaluate Cirrhosis secondary to Hep C Cirrhosis-appears compensated, mild elevation in LFTs, Hepatitis C virus load very high Awaiting evaluation for starting treatment as an OP has Thrombocytopenia Chronic pain 2/2 RA-currently reports flare x 2 weeks. Taking daily NSAIDs, however, this is not helping. Sees Dr Chamorro in [place] Rhe[facility] consult to help with flare. Pt continues on Enbrel twice weekly. Asymptomatic bacteriuria-covering empirically with Cipro (above) while awaiting culture results. h/o MRSA DVT proph-SCDs, thrombocytopenia FULL CODE Dispo-to med/surg. Vital Signs: Date Time Temp Pulse Resp B/P (MAP) Pulse Ox O2 Delivery O2 Flow Rate FiO2 09/07/16 14:52 37.2 70 18 122/80 (94) 97 Room Air 09/07/16 11:51 37.6 77 14 116/77 (90) 96 Room Air 09/07/16 08:30 97 Room Air 09/07/16 07:49 37.1 83 16 114/78 (90) 97 Room Air 09/07/16 05:40 37.5 76 18 143/73 95 Room Air 09/07/16 04:38 81 18 111/68 96 Room Air 09/07/16 02:54 78 18 129/75 96 Room Air 09/07/16 01:17 65 18 124/73 100 Room Air 09/06/16 23:16 36.7 82 18 112/61 96 Room Air Lab Results: Results Past 24 Hours Test 09/06/16 23:25 09/07/16 00:01 09/07/16 00:02 09/07/16 00:32 Range/Units Urine Color DK YELLOW Urine Appearance CLEAR CLEAR Urine pH 6.5 4.5-7.5 Urine Specific [place] 1.024 1.000-1.030 Urine Protein NEG NEG Urine Glucose (UA) NEG NEG Urine Ketones NEG NEG Urine Occult Blood NEG NEG Urine Nitrite POS NEG Urine Bilirubin NEG NEG Urine Urobilinogen NEG NEG Urine Leukocyte Esterase TRACE NEG Urine WBC (Auto) 1-5 0-5 /hpf Urine RBC (Auto) 0-4 0-4 /hpf Urine Hyaline Casts (Auto) 1-5 0-5 /lpf Urine Epithelial Cells (Auto) >30 0-5 /lpf Urine Bacteria (Auto) 4+ NEG Bedside Lactic Acid Venous 0.60 0.90-1.70 mmol/L Bedside Troponin I 0-0.045 ng/ml White Blood Count 4.31 4.8-10.8 K/uL Red Blood Count 4.56 4.2-5.4 M/uL Hemoglobin 12.8 12.0-16.0 g/dL Hematocrit 38.5 37-47 % Mean Corpuscular Volume 84.4 80-100 fL Mean Corpuscular Hemoglobin 28.1 25-34 pg Mean Corpuscular Hemoglobin Concent 33.2 32-36 g/dl Platelet Count 62 130-400 K/uL Mean Platelet Volume 10.0 7.4-10.4 fL Neutrophils (%) (Auto) 49.4 % Lymphocytes (%) (Auto) 32.0 % Monocytes (%) (Auto) 15.5 % Eosinophils (%) (Auto) 2.6 % Basophils (%) (Auto) 0.5 % Neutrophils # (Auto) 2.13 1.4-6.5 K/uL Lymphocytes # (Auto) 1.38 1.2-3.4 K/uL Monocytes # (Auto) 0.67 0.11-0.59 K/uL Eosinophils # (Auto) 0.11 0-0.5 K/uL Basophils # (Auto) 0.02 0-0.2 K/uL RDW Standard Deviation 47.2 36.4-46.3 fL RDW Coefficient of Variation 15.2 11.5-14.5 % Immature Granulocyte % (Auto) 0.0 % Immature Granulocyte # (Auto) 0.00 0.00-0.02 K/uL Platelet Estimate DECREASED Red Blood Cell Morphology Unremarkable Prothrombin Time 11.8 9.0-12.0 SECONDS Prothromb Time International Ratio 1.1 0.9-1.1 Activated Partial Thromboplast Time 29.0 21.0-31.0 SECONDS Partial Thromboplastin Ratio 1.1 Sodium Level 146 136-145 mmol/L Potassium Level 4.0 3.5-5.1 mmol/L Chloride Level 112 98-107 mmol/L Carbon Dioxide Level 29 21-32 mmol/L Anion Gap 5.0 3-11 mmol/L Blood Urea Nitrogen 12 7-18 mg/dl Creatinine 0.41 0.60-1.20 mg/dl Est Creatinine Clear Calc Drug Dose 135.9 ml/min Estimated GFR () 136.7 Estimated GFR (Non- 118.0 BUN/Creatinine Ratio 28.3 10-20 Random Glucose 83 70-99 mg/dl Calcium Level 7.9 8.5-10.1 mg/dl Magnesium Level 1.7 1.8-2.4 mg/dl Total Bilirubin 0.8 0.2-1 mg/dl Aspartate Amino Transf (AST/SGOT) 139 15-37 U/L Alanine Aminotransferase (ALT/SGPT) 87 12-78 U/L Alkaline Phosphatase 106 45-117 U/L Troponin I < 0.015 0-0.045 ng/ml Total Protein 5.3 6.4-8.2 gm/dl Albumin 2.7 3.4-5.0 gm/dl Globulin 2.6 2.5-4.0 gm/dl Albumin/Globulin Ratio 1.0 0.9-2 Thyroid Stimulating Hormone (TSH) 1.970 0.300-4.500 uIu/ml Test 09/07/16 04:55 09/07/16 11:58 Range/Units Ammonia 35.0 11-32 umol/L Microbiology Results 09/07/16 C.difficile Toxin B Gene (PCR) - Final, Complete No C. difficile toxin B gene detected 09/07/16 Shiga Toxin Test, Received Pending 09/07/16 Stool Culture, Received Pending 09/06/16 Urine Culture, Received Pending
--- NOTE | 2016-09-07 18:05 | Rheumatology Consultation ---
Rheumatology Consultation Date of Consultation: Sep 07, 2016. Requesting Physician: Dr Lozano Attending Physician: Dr Gage Reason for Consultation: Long standing RA - more joint pains History of Present Illness Aleta has long stnading PORTIA with now active disease as an adult followed by Dr Malcom Patterson in [facility]. she also has a diagnosis of Hep C, recent MRSA soft tissue infection who presented to [facility] last night with decreased PO intake, nausea, diarrhea for the last 2 days. she was also confused and drowsy as well. She was admitted and CT scan done that showed changes to the colon concerning for colitis as well as chronic liver disease noted. she has elevated LFTs. She was seen by GI as well. started on abx. Admission H&P and GI sconsult noted reviewed. also last note from Dr Patterson and Dr Glaser was reviewed prior to seeing patient at the hospital. She is already feeling better and was examined at the bedside and just finished eating dinner. she and her who is in the room report she is almost 100% better than when she presented to the hospital. she is not drowsy anymore and no confusion. She is also reporting increasing joint pains. she is on enbrel 25mg bi weekly with pred 5mg daily. she was suppose to see Dr Patterson in the office tomorrow. she wanted to discuss with him about her worsening jont pains. her pain is around 6/10. has some increased swelling of the hand, right knee. reports her right knee needs to be replaced. she used to be on narcotics as per outpatient records but those were stopped. she has only ever been on enbrel from a biologic standpoint. cannot get arava or MTX given liver disease and has sulfa allergy. has used plaquenil in the past. she has been up walking today x 2. she reports in past pred tapers have helped. she is stiff for several hrs each day. Past Medical/Surgical History Medical History: hepatitis (C), rheumatoid arthritis (long standing PORTIA), other (m/o MRSA, chronic pain syndrome) Surgical History: , orthopedic surgery (shoulder replacement) Family History non contributory Social History Smoking Status: Never Smoker History of Alcohol Use: No Drug Use: none Marital Status: Housing Status: lives with significant other Occupation Status: unemployed Review of Systems Constitutional: + fatigue, + problem reported (headaches), No fever Cardiac: No chest pain, No orthopnea Abdomen: + see HPI, + nausea, + diarrhea Musculoskeletal: + see HPI All Other Systems: Reviewed and Negative Allergies Coded Allergies: Sulfa Antibiotics (Verified Allergy, Severe, ANAPHYLAXIS, 09/07/16) Sulfamethoxazole w/Trimethoprim (Verified Allergy, Severe, ANAPHYLAXIS, ) Medications Current Inpatient Medications Medications (Trade) Dose Ordered Sig/Mont[place] Route Start Time Stop Time Status Last Admin Dose Admin Ioversol (Optiray 320) 100 ml UD PRN IV 09/07/16 00:00 09/11/16 00:00 Ondansetron HCl (Zofran Inj) 4 mg Q6H PRN IV 09/07/16 04:45 10/07/16 04:44 Ciprofloxacin/ Dextrose 400 mg/ Prmx 200 ml @ 100 mls/hr Q12H IV 09/07/16 08:00 09/17/16 07:59 09/07/16 09:30 100 MLS/HR Metronidazole 500 mg/Prmx 100 ml @ 100 mls/hr Q8H IV 09/07/16 06:00 09/17/16 05:59 09/07/16 14:35 100 MLS/HR Acetaminophen/ Hydrocodone Bitart ([place] 5/325 Tab) 1 tab Q6H PRN PO 09/07/16 05:00 09/21/16 04:59 Morphine Sulfate (MoRPHine SULFATE INJ) 2 mg Q4H PRN IV 09/07/16 05:00 09/21/16 04:59 Sodium Chloride 1,000 ml @ 125 mls/hr Q8H IV 09/07/16 06:00 09/07/16 21:59 09/07/16 14:35 125 MLS/HR Levothyroxine Sodium (Synthroid Tab) 25 mcg DAILYBB PO 09/07/16 06:30 10/07/16 06:59 09/07/16 07:29 25 MCG Liothyronine Sodium (Cytomel Tab) 25 mcg DAILY PO 09/07/16 08:00 10/07/16 08:59 09/07/16 07:30 25 MCG Prednisone (PredniSONE TAB) 5 mg DAILY PO 09/07/16 08:00 10/07/16 08:59 09/07/16 07:30 5 MG Ranitidine HCl (zANTac TAB) 150 mg DAILY PO 09/07/16 08:00 10/07/16 08:59 09/07/16 07:30 150 MG Pantoprazole Sodium (Protonix Tab) 40 mg QAM PO 09/07/16 08:00 10/07/16 08:59 09/07/16 07:30 40 MG Miscellaneous Information (Order Awaiting Action) 1 ea QS N/A 09/07/16 08:00 10/07/16 07:59 Physical Exam Date Time Temp Pulse Resp B/P (MAP) Pulse Ox O2 Delivery O2 Flow Rate FiO2 09/07/16 14:52 37.2 70 18 122/80 (94) 97 Room Air 09/07/16 14:51 97 Room Air 09/07/16 11:51 37.6 77 14 116/77 (90) 96 Room Air 09/07/16 08:30 97 Room Air 09/07/16 07:49 37.1 83 16 114/78 (90) 97 Room Air 09/07/16 05:40 37.5 76 18 143/73 95 Room Air 09/07/16 04:38 81 18 111/68 96 Room Air 09/07/16 02:54 78 18 129/75 96 Room Air 09/07/16 01:17 65 18 124/73 100 Room Air 09/06/16 23:16 36.7 82 18 112/61 96 Room Air General Appearance: WD/WN, no apparent distress Eyes: bilateral eyes normal inspection, bilateral eyes EOMI ENT: normal ENT inspection, hearing grossly normal, pharynx normal Neck: supple, no adenopathy, trachea midline Respiratory: chest non-tender, + pertinent finding (dry crackles int he bases, clear upper lung farley) Cardiovascular: regular rate, rhythm, no gallop, + systolic murmur (2/6 ELSIE) Abdomen: normal bowel sounds, non tender, soft Musculoskeletal: has chronic thickening of the MCPs 2-5 both hands L>R ? trace synovitis of hte left MCPs 2-4 as compared to right reduced ext/flex both wrists large amada nodes PIPs 1-5 both hands heberden node noted right 2nd DIP + pain with exam right knee - small effusion as well + bunions both 1st MTPs Laboratory Results Last 24 Hours Test 09/06/16 23:25 09/07/16 00:01 09/07/16 00:02 09/07/16 00:32 Urine Color DK YELLOW Urine Appearance CLEAR Urine pH 6.5 Urine Specific [place] 1.024 Urine Protein NEG Urine Glucose (UA) NEG Urine Ketones NEG Urine Occult Blood NEG Urine Nitrite POS Urine Bilirubin NEG Urine Urobilinogen NEG Urine Leukocyte Esterase TRACE Urine WBC (Auto) 1-5 /hpf Urine RBC (Auto) 0-4 /hpf Urine Hyaline Casts (Auto) 1-5 /lpf Urine Epithelial Cells (Auto) >30 /lpf Urine Bacteria (Auto) 4+ Bedside Lactic Acid Venous 0.60 mmol/L Bedside Troponin I ng/ml White Blood Count 4.31 K/uL Red Blood Count 4.56 M/uL Hemoglobin 12.8 g/dL Hematocrit 38.5 % Mean Corpuscular Volume 84.4 fL Mean Corpuscular Hemoglobin 28.1 pg Mean Corpuscular Hemoglobin Concent 33.2 g/dl Platelet Count 62 K/uL Mean Platelet Volume 10.0 fL Neutrophils (%) (Auto) 49.4 % Lymphocytes (%) (Auto) 32.0 % Monocytes (%) (Auto) 15.5 % Eosinophils (%) (Auto) 2.6 % Basophils (%) (Auto) 0.5 % Neutrophils # (Auto) 2.13 K/uL Lymphocytes # (Auto) 1.38 K/uL Monocytes # (Auto) 0.67 K/uL Eosinophils # (Auto) 0.11 K/uL Basophils # (Auto) 0.02 K/uL RDW Standard Deviation 47.2 fL RDW Coefficient of Variation 15.2 % Immature Granulocyte % (Auto) 0.0 % Immature Granulocyte # (Auto) 0.00 K/uL Platelet Estimate DECREASED Red Blood Cell Morphology Unremarkable Prothrombin Time 11.8 SECONDS Prothromb Time International Ratio 1.1 Activated Partial Thromboplast Time 29.0 SECONDS Partial Thromboplastin Ratio 1.1 Sodium Level 146 mmol/L Potassium Level 4.0 mmol/L Chloride Level 112 mmol/L Carbon Dioxide Level 29 mmol/L Anion Gap 5.0 mmol/L Blood Urea Nitrogen 12 mg/dl Creatinine 0.41 mg/dl Est Creatinine Clear Calc Drug Dose 135.9 ml/min Estimated GFR () 136.7 Estimated GFR (Non- 118.0 BUN/Creatinine Ratio 28.3 Random Glucose 83 mg/dl Calcium Level 7.9 mg/dl Magnesium Level 1.7 mg/dl Total Bilirubin 0.8 mg/dl Aspartate Amino Transf (AST/SGOT) 139 U/L Alanine Aminotransferase (ALT/SGPT) 87 U/L Alkaline Phosphatase 106 U/L Troponin I < 0.015 ng/ml Total Protein 5.3 gm/dl Albumin 2.7 gm/dl Globulin 2.6 gm/dl Albumin/Globulin Ratio 1.0 Thyroid Stimulating Hormone (TSH) 1.970 uIu/ml Test 09/07/16 04:55 09/07/16 11:58 Ammonia 35.0 umol/L Assessment & Plan Assessment & Plan: Aleta is a 65 y/o female with long stnading RA immunosuppressed on enbrel and pred that presented with possible infectious colitis vs other etiology that is now dong better with hydration and abx. she also has chronic hep C and followed by GI. she is noting some increased arthritis pains from her long stnading RA and not sure if enbrel is helping at this point. 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 for now can use short pred taper (given benefit in past ) and follow. Case was discussed with Dr Gage Plan: 1 Pred taper starting at 15mg x4 days, 10mg x 4 days then resume 5mg daily 2. hold enbrel until off abx 3. I will contact Dr Patterson about arranging rheumatology follow up with him in [place] to discuss future options 4. thank you for the consult and involving me in this patient's care
[2016-09-08 03:42] VITALS: BP 96/64; PULSE 69; TEMP 37; O2SAT 96
[2016-09-08] MEDS: METRONIDAZOLE / NSS 500 MG in PREMIXED NSS 100 ML IV SCH ×2 (06:08→14:10)
[2016-09-08] MEDS: LEVOTHYROXINE 25 MCG TAB PO SCH (06:09)
[2016-09-08 06:45] LABS: HEMATOCRIT 35.6 % (37-47); MEAN CELL VOLUME 85.2 fL (80-100); MEAN CORPUSCULAR HEMOGLOBIN 28.7 pg (25-34); MEAN CORPUSCULAR HGB CONC 33.7 g/dl (32-36); RED BLOOD COUNT 4.18 M/uL (4.2-5.4); WHITE BLOOD COUNT 4.46 K/uL (4.8-10.8)
[2016-09-08 07:16] LABS: PLATELET COUNT 65 K/uL (130-400)
[2016-09-08 07:19] LABS: BUN/CREATININE RATIO 22.7 (10-20); CALCIUM 7.9 mg/dl (8.5-10.1); CREATININE 0.52 mg/dl (0.60-1.20); PHOSPHORUS 2.3 mg/dl (2.5-4.9); POTASSIUM 4.7 mmol/L (3.5-5.1)
[2016-09-08 07:30] VITALS: BP 105/70; PULSE 70; TEMP 36.6; O2SAT 97
[2016-09-08] MEDS: CIPROFLOXACIN / D5W 400 MG in PREMIXED IN D5W 200 ML IV SCH (07:39)
[2016-09-08] MEDS: [UNRECOGNIZED DRUG - OTHER] SCH ×3 (07:39→16:00)
[2016-09-08] MEDS: RANITIDINE HCL 150 MG TAB PO SCH (07:41)
[2016-09-08] MEDS: PANTOprazole SOD 40 MG TAB PO SCH (07:41)
[2016-09-08] MEDS: LIOTHYRONINE SODIUM 25 MCG TAB PO SCH (07:42)
--- NOTE | 2016-09-08 11:19 | Gastroenterology Progress Note ---
Progress Note Date of Service: Sep 08, 2016 Subjective Pt evaluation today including: conversation w/ patient, physical exam, chart review, lab review, review of studies, review of inpatient medication list Ms. Catherine is a 55 yr old female with Hep C cirrhosis, genotype 3a, F4 fibrosis admitted for diarrhea. CT with diffuse colon wall thickening., infectious vs. inflammatory. No diarrhea since arrival and pt feels well. Ambulating in her room. Review of Systems Constitutional: No fever Respiratory: No cough Abdomen: + pain (On addmission, she did have diffuse mid abdomen pain which is now resolved. ) Female : No dysuria Neuro: No memory loss Psych: No depression symptoms Heme: No abnormal bleeding/bruising Endo: No fatigue Skin: No rash Medications Current Inpatient Medications Medications (Trade) Dose Ordered Sig/Montse Route Start Time Stop Time Status Last Admin Dose Admin Ioversol (Optiray 320) 100 ml UD PRN IV 09/07/16 00:00 09/11/16 00:00 Ondansetron HCl (Zofran Inj) 4 mg Q6H PRN IV 09/07/16 04:45 10/07/16 04:44 Ciprofloxacin/ Dextrose 400 mg/ Prmx 200 ml @ 100 mls/hr Q12H IV 09/07/16 08:00 09/17/16 07:59 09/08/16 07:39 100 MLS/HR Metronidazole 500 mg/Prmx 100 ml @ 100 mls/hr Q8H IV 09/07/16 06:00 09/17/16 05:59 09/08/16 06:08 100 MLS/HR Acetaminophen/ Hydrocodone Bitart ([place] 5/325 Tab) 1 tab Q6H PRN PO 09/07/16 05:00 09/21/16 04:59 09/07/16 20:12 1 TAB Morphine Sulfate (MoRPHine SULFATE INJ) 2 mg Q4H PRN IV 09/07/16 05:00 09/21/16 04:59 Levothyroxine Sodium (Synthroid Tab) 25 mcg DAILYBB PO 09/07/16 06:30 10/07/16 06:59 09/08/16 06:09 25 MCG Liothyronine Sodium (Cytomel Tab) 25 mcg DAILY PO 09/07/16 08:00 10/07/16 08:59 09/08/16 07:42 25 MCG Ranitidine HCl (zANTac TAB) 150 mg DAILY PO 09/07/16 08:00 10/07/16 08:59 09/08/16 07:41 150 MG Pantoprazole Sodium (Protonix Tab) 40 mg QAM PO 09/07/16 08:00 10/07/16 08:59 09/08/16 07:41 40 MG Miscellaneous Information (Order Awaiting Action) 1 ea QS N/A 09/07/16 08:00 10/07/16 07:59 Prednisone (PredniSONE TAB) 15 mg Taper DAILY PO 09/08/16 08:00 10/16/16 07:59 09/08/16 07:41 15 MG Objective Vital Signs Date Time Temp Pulse Resp B/P (MAP) Pulse Ox O2 Delivery O2 Flow Rate FiO2 09/08/16 08:00 Room Air 09/08/16 07:30 36.6 70 18 105/70 (82) 97 Room Air 09/08/16 03:42 37.0 69 16 96/64 (75) 96 Room Air 09/08/16 00:05 Room Air 09/07/16 23:39 37.0 68 16 121/73 (89) 97 09/07/16 20:05 Room Air 09/07/16 19:11 37.2 77 18 106/62 (77) 97 Room Air 09/07/16 14:52 37.2 70 18 122/80 (94) 97 Room Air 09/07/16 14:51 97 Room Air 09/07/16 11:51 37.6 77 14 116/77 (90) 96 Room Air Physical Exam General Appearance: no apparent distress Neck: supple, no adenopathy, thyroid normal, no JVD Respiratory/Chest: lungs clear, no respiratory distress, no accessory muscle use Cardiovascular: regular rate, rhythm, no JVD, no murmur Abdomen: non tender, soft Extremities: no pedal edema Neurologic/Psych: alert, normal mood/affect, oriented x 3 Skin: no jaundice, warm/dry, no rash Laboratory Results Last 24 Hours Test 09/07/16 11:58 09/08/16 06:12 Ammonia 35.0 umol/L White Blood Count 4.46 K/uL Red Blood Count 4.18 M/uL Hemoglobin 12.0 g/dL Hematocrit 35.6 % Mean Corpuscular Volume 85.2 fL Mean Corpuscular Hemoglobin 28.7 pg Mean Corpuscular Hemoglobin Concent 33.7 g/dl RDW Standard Deviation 48.0 fL RDW Coefficient of Variation 15.3 % Platelet Count 65 K/uL Mean Platelet Volume 11.0 fL Sodium Level 144 mmol/L Potassium Level 4.7 mmol/L Chloride Level 113 mmol/L Carbon Dioxide Level 28 mmol/L Anion Gap 3.0 mmol/L Blood Urea Nitrogen 12 mg/dl Creatinine 0.52 mg/dl Est Creatinine Clear Calc Drug Dose 107.8 ml/min Estimated GFR () 126.4 Estimated GFR (Non- 109.1 BUN/Creatinine Ratio 22.7 Random Glucose 103 mg/dl Calcium Level 7.9 mg/dl Phosphorus Level 2.3 mg/dl Magnesium Level 2.0 mg/dl Assessment and Plan Ms. Catherine is a 55 yr old female with Hep C cirrhosis, diarrhea (resolved). Etiology is inflammatory vs. infectious. Thus far negative stool culture and negative for C-diff. Plan 1. Continue Cipro/Flagyl for at least 7-10 days 2. Will review Giardia results when available. 3. Eventual, OP EGD for variceal screening and also Colonoscopy to r/o IBD. 4. HCV: Genotype 3a, F4 fibrosis. She will need to f/u w Dr. Glaser on to determine if she is an eligible candidate for treatment (possibly Epclusa x 12 weeks). I have personally seen and examined the patient with SABI Garcia. Her note reflects my exam and findings. I agree with her impression and plan. Diarrhea has improved. Unclear etiology but will need out patient colonoscopy. Earnest Altman M.D.
[2016-09-08 12:00] VITALS: BP 111/68; PULSE 86; TEMP 36.9; O2SAT 99
[2016-09-08 15:05] VITALS: BP 111/68; PULSE 86; TEMP 36.9; O2SAT 99
--- NOTE | 2016-09-08 16:26 | Progress Note ---
Medicine Progress Note Date & Time of Visit: Sep 08, 2016 at 15:50. Subjective Pt was seen and examined Lying in bed comfortable with no distress Pt said that her diarrhea resolved and her abdominal pain improved She tolerated her diet denies any chest pain, palpitation, dizziness and SOB Objective Last 8 Hrs Date Time Temp Pulse Resp B/P (MAP) Pulse Ox O2 Delivery O2 Flow Rate FiO2 09/08/16 15:05 36.9 86 20 99 Room Air 09/08/16 12:00 36.9 86 20 111/68 (82) 99 Room Air 09/08/16 08:00 Room Air Physical Exam: General- No acute distress Head- atraumatic Eyes- PERRL, EOMI ENT- oropharynx clear Neck- supple, no JVD Lungs- clear to auscultation Heart- regular rhythm; +Systolic murmur (3/6) Abdomen- normal bowel sounds, Non tender Extremities-no calf tenderness Neuro- alert, oriented x 3; PERRL, EOMI Skin- warm & dry Laboratory Results: Last 24 Hours Test 09/08/16 06:12 White Blood Count 4.46 K/uL Red Blood Count 4.18 M/uL Hemoglobin 12.0 g/dL Hematocrit 35.6 % Mean Corpuscular Volume 85.2 fL Mean Corpuscular Hemoglobin 28.7 pg Mean Corpuscular Hemoglobin Concent 33.7 g/dl RDW Standard Deviation 48.0 fL RDW Coefficient of Variation 15.3 % Platelet Count 65 K/uL Mean Platelet Volume 11.0 fL Sodium Level 144 mmol/L Potassium Level 4.7 mmol/L Chloride Level 113 mmol/L Carbon Dioxide Level 28 mmol/L Anion Gap 3.0 mmol/L Blood Urea Nitrogen 12 mg/dl Creatinine 0.52 mg/dl Est Creatinine Clear Calc Drug Dose 107.8 ml/min Estimated GFR () 126.4 Estimated GFR (Non- 109.1 BUN/Creatinine Ratio 22.7 Random Glucose 103 mg/dl Calcium Level 7.9 mg/dl Phosphorus Level 2.3 mg/dl Magnesium Level 2.0 mg/dl Assessment & Plan Gil Colitis Could be infectious vs inflammatory CT abd/pelvis showed Circumferential wall thickening involving the majority of the colon . Stool studies ordered-negative Continue Cipro/Flagyl to complete 7-10 days course Appreciate GI input and recommendation Will need outpt EGD for variceal screening and also Colonoscopy to r/o IBD. Diarrhea significantly improved Weakness/Drowsiness Likely from Medication for chronic pain secondary to RA. Elevated Ammonia level-35 Continue PT/OT Resolved Cirrhosis secondary to Hep C Cirrhosis-appears compensated, mild elevation in LFTs, Hepatitis C virus load very high HCV: Genotype 3a, F4 fibrosis. F/u w Dr. Glaser on 10/13/16 to determine if she is an eligible candidate for treatment Chronic pain due RA has been taking daily NSAIDs,with no help Sees Dr Chamorro in [place] Rheum on board for the flare up On Enbrel twice weekly. Recommendation Prednisone taper starting at 15mg x4 days, 10mg x 4 days then resume 5mg daily hold enbrel until off abx Follow up with Dr. Chamorro in [place] Plan to change rheumatology service to Dr. Kelly since pt lives close by. Bacteriuria Asymptomatic Urine cx growth Ecoli Already on cipro for colitis Thrombocytopenia Due to hep C/cirrhosis platelet 65 No sings of bleeding Continue monitor CBC DVT px-SCDs due to thrombocytopenia FULL CODE Disposition Follow up with your new primary care provider Dr. Talley on 09/14 @ 11 am at the [facility] Prednisone taper starting at 15mg x4 days, 10mg x 4 days then resume 5mg daily Follow up with gastrology Dr. Glaser on 10/13/16 Consultants: gastro Rheumatology Current Inpatient Medications: Current Inpatient Medications Medications (Trade) Dose Ordered Sig/Montse Route Start Time Stop Time Status Last Admin Dose Admin Ioversol (Optiray 320) 100 ml UD PRN IV 09/07/16 00:00 09/11/16 00:00 Ondansetron HCl (Zofran Inj) 4 mg Q6H PRN IV 09/07/16 04:45 10/07/16 04:44 Ciprofloxacin/ Dextrose 400 mg/ Prmx 200 ml @ 100 mls/hr Q12H IV 09/07/16 08:00 09/17/16 07:59 09/08/16 07:39 100 MLS/HR Metronidazole 500 mg/Prmx 100 ml @ 100 mls/hr Q8H IV 09/07/16 06:00 09/17/16 05:59 09/08/16 14:10 100 MLS/HR Acetaminophen/ Hydrocodone Bitart ([place] 5/325 Tab) 1 tab Q6H PRN PO 09/07/16 05:00 09/21/16 04:59 09/07/16 20:12 1 TAB Morphine Sulfate (MoRPHine SULFATE INJ) 2 mg Q4H PRN IV 09/07/16 05:00 09/21/16 04:59 Levothyroxine Sodium (Synthroid Tab) 25 mcg DAILYBB PO 09/07/16 06:30 10/07/16 06:59 09/08/16 06:09 25 MCG Liothyronine Sodium (Cytomel Tab) 25 mcg DAILY PO 09/07/16 08:00 10/07/16 08:59 09/08/16 07:42 25 MCG Ranitidine HCl (zANTac TAB) 150 mg DAILY PO 09/07/16 08:00 10/07/16 08:59 09/08/16 07:41 150 MG Pantoprazole Sodium (Protonix Tab) 40 mg QAM PO 09/07/16 08:00 10/07/16 08:59 09/08/16 07:41 40 MG Miscellaneous Information (Order Awaiting Action) 1 ea QS N/A 09/07/16 08:00 10/07/16 07:59 Prednisone (PredniSONE TAB) 15 mg Taper DAILY PO 09/08/16 08:00 10/16/16 07:59 09/08/16 07:41 15 MG
[2016-09-08] MEDS ORDERED: METR-162 PO (16:45)
[2016-09-08] MEDS ORDERED: CIPR-255 PO (16:45)
[2016-09-08] MEDS ORDERED: PRED-301 PO ×2 (16:51→17:53)
--- NOTE | 2016-09-08 16:59 | Discharge Instructions ---
Discharge Instructions Date of Service Sep 08, 2016. Admission Reason for Admission: Weakness/Drowsiness Discharge Discharge Diagnosis / Problem: Thrombocytopenia, Cirrhosis secondary to Hep C, Gil Colitis, bacteriuria Discharge Goals Goal(s): Decrease discomfort, Improve function, Improve disease control Activity Recommendations Activity Limitations: resume your previous activity (as tolerated) . Instructions / Follow-Up Instructions / Follow-Up Follow up with your new primary care provider Dr. Talley on 09/14 @ 11 am at the [facility] Follow up with gastro Dr. Glaser on 10/13/16 Follow up with Rheumatology Dr. Chamorro Prednisone taper starting at 15mg x4 days(day 1 given in the hospital), 10mg x 4 days then resume 5mg daily fall precaution Complete antibiotic course with cipro and metronidazole Hold Enbrel for now, Resume once complete antibiotic Current Hospital Diet Patient's current hospital diet: AHA Diet (Heart Healthy) Discharge Diet Recommended Diet: AHA Diet (Heart Healthy) Pending Studies Studies pending at discharge: no List of pending studies: Follow final urine cx Medical Emergencies . Who to Call and When: Medical Emergencies: If at any time you feel your situation is an emergency, please call 911 immediately. . Non-Emergent Contact Non-Emergency issues call your: Primary Care Provider Call Non-Emergent contact if: you have a fever, your pain is worsening, you have any medication questions . . "Provider Documentation" section prepared by José Mao. . VTE Core Measure Inpt VTE Proph given/why not?: SCD's, Contraindicated
[2016-09-08 17:09] LABS: O&P GIARDIA AG NOT DETECTED (NOT DETECTED)
--- NOTE | 2016-09-11 17:32 | Discharge Summary ---
Discharge Summary Date of Service Sep 11, 2016. Discharge Summary Admission Date: Sep 07, 2016 at 03:36 Discharge Date: Sep 08, 2016 Principal Diagnosis: Gil Colitis Secondary Diagnoses/Problems: Thrombocytopenia Cirrhosis secondary to Hep C Bacteriuria Weakness Chronic pain RA Procedures: ABD/PELVIS IV CONTRAST ONLY HISTORY:55 yearsFemalelower abd pain, acute in onset. COMPARISON: Chest radiograph of same day TECHNIQUE: Multiple axial CT images of the abdomen and pelvis were obtained following the intravenous administration of 115 mL Optiray 320. FINDINGS: There are scattered probably peripheral Reclast opacities of the lung bases with areas of mosaic attenuation suggesting atelectasis with some air trapping. Evaluation of the lung bases is limited secondary to patient motion. No pneumoperitoneum is identified. Inferior cardiac chambers appear unremarkable. There is mild marginal nodularity of the liver with trace perihepatic ascites. Mild periportal edema is also noted. The spleen is enlarged measuring up to 16 cm in length. The gallbladder, pancreas and adrenal glands appear to be within normal limits. There are prominent hepatorenal varices noted with additional smaller varices seen near the oksana hepatis. There is a 3 mm nonobstructing calculus of the superior pole left kidney. 5 mm low attenuating lesion of the superior pole right kidney is too small to characterize however would statistically favor a benign cyst. No hydronephrosis. The urinary bladder is unremarkable. Prior hysterectomy. Small cystic lesion of the left adnexum, 2.0 x 1.2 cm is nonspecific. There is moderate atherosclerotic plaquing of the abdominal aorta and branch vessels. No pathologic adenopathy is identified. There is no bowel obstruction. Trace pelvic ascites is noted. There is mucosal hyperemia with circumferential wall thickening involving the majority of the colon. There is no evidence of acute appendicitis. The appendix is seen nicely on image 59 of the axial series and appears to be noninflamed and nondilated. The soft tissues are unremarkable. Multiple injection granulomas involve the subcutaneous tissues of the bilateral buttocks. The bones are intact. Large kraft node involves the superior endplate of L3. IMPRESSION: 1. Mild surface nodularity of the liver with splenomegaly and trace abdominal and pelvic ascites suggests cirrhotic liver disease with stigmata of portal hypertension. Correlate with LFTs. 2. Circumferential wall thickening involving the majority of the colon may be secondary to underlying hypoproteinemia or colitis from infectious or inflammatory cause. 3. 3 mm nonobstructing calculus of the superior pole left kidney. 4. Prior hysterectomy. The above report was generated using voice recognition software. It may contain grammatical, syntax or spelling errors. Electronically signed by: Scot Sol M.D. 09/07/2016 7:19 AM Dictated Date/Time: 09/07/2016 7:[address] HEAD WITHOUT CONTRAST (CT) CLINICAL HISTORY: Severe headache COMPARISON STUDY: No previous studies for comparison. TECHNIQUE: Axial CT of the brain is performed from the vertex to the skull base. IV contrast was not administered for this examination. CT DOSE: 537.48 mGy.cm FINDINGS: No intra or extra-axial mass lesions are visualized. There is no CT evidence of acute cortical infarction. There is no evidence of midline shift. There is no acute hemorrhage. No calvarial fractures are visualized. There is disconjugate ocular gaze There is no evidence of pathologic ventricular dilatation. There is no evidence of acute sinusitis IMPRESSION: Disconjugate ocular gaze. No acute intracranial findings. Electronically signed by: Vincent Rodrigues M.D. 09/07/2016 7:04 AM Dictated Date/Time: 09/07/2016 7:03 AM CHEST ONE VIEW PORTABLE CLINICAL HISTORY: weakness, coarse breath sounds on exam throughout COMPARISON STUDY: No previous studies for comparison. FINDINGS: The heart is the upper limits of normal in size. There is mild interstitial thickening. There is no lobar consolidation. There are no pleural effusions. There are postsurgical changes involving the right shoulder.[ IMPRESSION: Mild interstitial thickening. No evidence of focal pulmonary consolidation Electronically signed by: Vincent Rodrigues M.D. 09/07/2016 6:49 AM Dictated Date/Time: 09/07/2016 6:49 AM Consultations: gastro Rheumatology Medication Reconciliation New Medications: Ciprofloxacin Hcl (Cipro) 500 Mg Tab 500 MG PO BID for 5 Days, TAB Metronidazole (Flagyl) 500 Mg Tab 500 MG PO TID for 5 Days, TAB Changed Medications: Prednisone (Prednisone) 5 Mg Tab 5 MG PO UD for 30 Days, TAB (Changed from: take 3 tabs for 3 days, then 2 tabs for 4 days, then continue 5 mg (1 tab) daily) take 3 tabs daily for 3 days, then 2 tabs daily for 4 days, then continue 5 mg (1 tab) daily Continued Medications: Cholecalciferol (Vitamin D3) 1,000 Unit Tab 1 TAB PO DAILY for 90 Days, #90 TAB 3 Refills Cyanocobalamin (Vitamin B12) 1,000 Mcg Tab 1000 MCG PO DAILY Etanercept (Enbrel) 25 Mg Inj 25 MG INJ 2XWK TUESDAYS & FRIDAYS Fexofenadine-Pseudoephedrine (Yazmin-D 24 Hour Allergy) 1 Tab Tab 1 TAB PO DAILY for 30 Days, #30 TAB Levothyroxine Sodium (Synthroid) 25 Mcg Tab 25 MCG PO DAILY, TAB Liothyronine Sodium (Cytomel) 25 Mcg Tab 25 MCG PO DAILY, TAB Omeprazole (Prilosec) 40 Mg Cap 40 MG PO DAILY, CAP Ranitidine (Zantac) 150 Mg Tab 150 MG PO DAILY, TAB Sucralfate (Carafate) 1 Gm Tab 1 GM PO DAILY, TAB Sumatriptan Succinate (Imitrex) 100 Mg Tab 100 MG PO UD PRN for Migraine, TAB Discontinued Medications: Nabumetone (Relafen) 500 Mg Tab 500 MG PO DAILY, TAB Admission Information HPI (per Admitting provider): 55 yo F with 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 The weakness has been ongoing as she suffers from uncontrolled joint pain from her RA. Approximately 6 months ago she was taken off narcotics and has been doing poorly with a very poor QOL since per her . She was recently seen by Dr. Da Silva in the [facility] clinic for consideration of antiviral therapy for HCV. For the last two days, she reports low PO intake, no vomiting or nausea, the presence of a sharp abdominal pain that doesn't radiate and is located around her umbilicus, no UTI symptoms such as dysuria or urgency, no chest pain or shortness of breath. She reports a headache that is generalized and has a h/o migraines. Head CT was performed and is negative for acute intracranial process. She is mentating well, however, is very lethargic as she was just given Benadryl for a headache here in the ER. reports about 8 BM. She denies recent antibiotic use and hasn't had a colonoscopy. Last hospitalization was in [facility] in [place], [place] for a MRSA wound infection around her breast, which is well-healed. She does drink well water. denies any recent travel. CT a/p reveals diffuse colonic mural thickening consistent with colitis. She is on an NSAID chronically for her arthritis which is known to cause diarrhea. She also reports increased pain in her hands, nicki in MCP joints consistent with a flare x 2 weeks. She reports not being able to get ahold of her Genetic Supervisor in [place], but states that she was scheduled to see him as an outpatient later this week. She recently moved back to the area and lives with her in [place]. She has tried to establish care here with a PCP, but no one will take her per . Physical Exam (per Admitting): GEN: WNWD, in no acute distress, alert and appropriate but easily falls asleep/ lethargic after benadryl HEENT: NC/AT, PERRL, normal non-icteric sclerae, MMM, pharynx non-acute, no LAD CARDIO: reg rate, S1/2 heard without m/g/r LUNGS: coarse breath sounds throughout all lung farley, no rales or wheezes, poor effort ABD: soft, TTP in LLQ, +BS, non-distended, no rebound or guarding EXTREMITY: RP and DP palpable 2+ bilat, no LE swelling or edema, extremities are warm and well-perfused NEURO: no gross focal deficits, but limited evaluation as patient mostly asleep MUSC: moves all extremities equally SKIN: warm and dry, no jaundice. Healed scars around L breast area. Hospital Course Gil Colitis Could be infectious vs inflammatory CT abd/pelvis showed Circumferential wall thickening involving the majority of the colon . Stool studies ordered-negative Continue Cipro/Flagyl to complete 7-10 days course Appreciate GI input and recommendation Will need outpt EGD for variceal screening and also Colonoscopy to r/o IBD. Diarrhea significantly improved Weakness/Drowsiness Likely from Medication for chronic pain secondary to RA. Elevated Ammonia level-35 Continue PT/OT Resolved Cirrhosis secondary to Hep C Cirrhosis-appears compensated, mild elevation in LFTs, Hepatitis C virus load very high HCV: Genotype 3a, F4 fibrosis. F/u w Dr. Glaser on 10/13/16 to determine if she is an eligible candidate for treatment Chronic pain due RA has been taking daily NSAIDs,with no help Sees Dr Chamorro in [place] Rheum on board for the flare up On Enbrel twice weekly. Recommendation Prednisone taper starting at 15mg x4 days, 10mg x 4 days then resume 5mg daily hold enbrel until off abx Follow up with Dr. Chamorro in [place] Plan to change rheumatology service to Dr. Kelly since pt lives close by. Bacteriuria Asymptomatic Urine cx growth Ecoli Already on cipro for colitis Thrombocytopenia Due to hep C/cirrhosis platelet 65 No sings of bleeding Continue monitor CBC DVT px-SCDs due to thrombocytopenia FULL CODE Disposition Follow up with your new primary care provider Dr. Talley on 09/14 @ 11 am at the [facility] Prednisone taper starting at 15mg x4 days, 10mg x 4 days then resume 5mg daily Follow up with gastrology Dr. Glaser on 10/13/16 Total time spent on discharge = 35 minutes This includes examination of the patient, discharge planning, medication reconciliation, and communication with other providers. Discharge Instructions Discharge Instructions Date of Service Sep 08, 2016. Admission Reason for Admission: Weakness/Drowsiness Discharge Discharge Diagnosis / Problem: Thrombocytopenia, Cirrhosis secondary to Hep C, Gil Colitis, bacteriuria Discharge Goals Goal(s): Decrease discomfort, Improve function, Improve disease control Activity Recommendations Activity Limitations: resume your previous activity (as tolerated) . Instructions / Follow-Up Instructions / Follow-Up Follow up with your new primary care provider Dr. Talley on 09/14 @ 11 am at the [facility] Follow up with gastro Dr. Glaser on 10/13/16 Follow up with Rheumatology Dr. Chamorro Prednisone taper starting at 15mg x4 days(day 1 given in the hospital), 10mg x 4 days then resume 5mg daily fall precaution Complete antibiotic course with cipro and metronidazole Hold Enbrel for now, Resume once complete antibiotic Current Hospital Diet Patient's current hospital diet: AHA Diet (Heart Healthy) Discharge Diet Recommended Diet: AHA Diet (Heart Healthy) Pending Studies Studies pending at discharge: no List of pending studies: Follow final urine cx Medical Emergencies . Who to Call and When: Medical Emergencies: If at any time you feel your situation is an emergency, please call 911 immediately. . Non-Emergent Contact Non-Emergency issues call your: Primary Care Provider Call Non-Emergent contact if: you have a fever, your pain is worsening, you have any medication questions . . "Provider Documentation" section prepared by José Mao. . VTE Core Measure Inpt VTE Proph given/why not?: SCD's, Contraindicated Additional Copies To Irineo Talley M.D.
== END 2016-09-08 18:21 | disposition home or self-care (01) | DRG 392 ==
LOC: C.EDB 23:16 → C.4E 09-07 03:36 → ENRESERV 09-07 05:07
PROVIDERS: ADMIT Hospitalist; ATTEND Internal Medicine
DX: K52.9 Noninfective gastroenteritis and colitis, unspecified (principal); M08.00 Unspecified juvenile rheumatoid arthritis of unspecified site; E86.0 Dehydration; Z88.2 Allergy status to sulfonamides; K74.69 Other cirrhosis of liver; Z86.14 Personal history of Methicillin resistant Staphylococcus aureus infection; K21.9 Gastro-esophageal reflux disease without esophagitis; B18.2 Chronic viral hepatitis C; E03.9 Hypothyroidism, unspecified; Z96.619 Presence of unspecified artificial shoulder joint; Z87.891 Personal history of nicotine dependence; R82.71 Bacteriuria; G89.29 Other chronic pain; Z79.52 Long term (current) use of systemic steroids; D69.6 Thrombocytopenia, unspecified

== ENCOUNTER 2017-04-09 17:52 | Inpatient (IN) | payer OTHER ==
[~2017-04-09] VITALS: Ht 157.5 cm; Wt 63.8 kg
[~2017-04-09 17:52] MED LIST: CHOL1000 PO; CIPR-255 PO; CYAN100020 PO; ETAN25IN2 INJ; FEXO1TAB58 PO; LEVO25TA PO; LIOT25TA8 PO; OMEP40CA41 PO; PRED-301 PO; RANI150T85 PO; SUCR1TAB29 PO; SUMA100T16 PO
[2017-04-09 19:32] LABS: INFLUENZA B ANTIGEN Neg for Influ B (NEG)
[2017-04-09] MEDS ORDERED: SODIUM CHLORIDE 0.9% 1000ML 2,000 ML IV STA (20:45)
[2017-04-09] MEDS ORDERED: KETOROLAC TROMETHAMINE 30 MG/ML VIAL IV STA (20:45)
[2017-04-09] MEDS ORDERED: SODIUM CHLORIDE 0.65% NA SOLN 45 ML (OCEAN) ONE (20:45)
[2017-04-09] MEDS ORDERED: METOCLOPRAMIDE HCL INJ 5 MG/ML 2 ML VIAL IV STA (20:45)
[2017-04-09] MEDS ORDERED: DiphenhydrAMINE HCL 50 MG/ML VIAL IV STA (20:45)
[2017-04-09] MEDS ORDERED: ACETAMINOPHEN 500 MG TAB PO STA (20:45)
[2017-04-09] MEDS ORDERED: ALBUT/IPRATROP 3MG/0.5MG NEB 3 ML VIAL INH ONE (20:45)
--- NOTE | 2017-04-09 21:30 | EMERGENCY ROOM VISIT NOTE ---
History Report prepared by Becki: Debi Kahn Under the Supervision of: Dr. Lior Leger M.D. First contact with patient: 20:28 Chief Complaint: FLU LIKE SX Stated Complaint: FEVER, COUGH, CAN'T MOVE, ACHES/PAINS History of Present Illness The patient is a 56 year old female who presents to the Emergency Room with complaints of persistent flu symptoms starting 1.5 weeks ago. The patient reports cough, congestion, body aches, fever, and headache. She has tried taking Tylenol to no significant relief. She reports some nausea with her headache. She is having pain in her sides from coughing. She denies any urinary symptoms, diarrhea, or vomiting. She has not been drinking a lot of fluids. The patient has a history of rheumatoid arthritis and is on an immunosuppressant. She is a former smoker. Source of History: patient Onset: 1.5 weeks ago Position: other (global) Quality: other (flu symptoms) Timing: other (persistent) Associated Symptoms: + fevers, + headache, + cough, + nausea, No vomiting, No diarrhea, No urinary symptoms Note: Pt reports body aches. Review of Systems See HPI for pertinent positives and negatives. A total of ten systems were reviewed and were otherwise negative. Past Medical & Surgical Medical Problems: (1) Ambulatory dysfunction (2) Chronic pain (3) Cirrhosis (4) GERD (gastroesophageal reflux disease) (5) H/O methicillin resistant Staphylococcus aureus (6) H/O peptic ulcer (7) HCV (hepatitis C virus) (8) Hypothyroidism (9) Juvenile rheumatoid arthritis (10) Migraine (11) Weakness Surgical Problems: (1) H/O: (2) S/P shoulder replacement (3) Status post incision and drainage Family History FH: cancer FATHER Social History Smoking Status: Current Every Day Smoker Alcohol Use: none Drug Use: none Marital Status: Housing Status: lives with family Occupation Status: unemployed Current/Historical Medications Scheduled Cholecalciferol (Vitamin D3), 1 TAB PO DAILY Cyanocobalamin (Vitamin B12), 1,000 MCG PO DAILY Etanercept (Enbrel), 25 MG INJ 2XWK Fexofenadine-Pseudoephedrine (Yazmin-D 24 Hour Allergy), 1 TAB PO DAILY Levothyroxine Sodium (Synthroid), 25 MCG PO DAILY Liothyronine Sodium (Cytomel), 25 MCG PO DAILY Omeprazole (Prilosec), 40 MG PO DAILY Ranitidine (Zantac), 150 MG PO DAILY Sucralfate (Carafate), 1 GM PO DAILY Scheduled PRN Dextromethorphan-Phenylephrine (Vicks Dayquil Cold & Flu), 1 CAP PO DIRECTED PRN for COLD & FLU Sumatriptan Succinate (Imitrex), 100 MG PO UD PRN for Migraine Allergies Coded Allergies: Sulfa Antibiotics (Verified Allergy, Severe, ANAPHYLAXIS, 04/09/17) Sulfamethoxazole w/Trimethoprim (Verified Allergy, Severe, ANAPHYLAXIS, ) Physical Exam Vital Signs Date Time Temp Pulse Resp B/P (MAP) Pulse Ox O2 Delivery O2 Flow Rate FiO2 04/09/17 21:47 69 18 95 Room Air 04/09/17 21:26 76 20 105/65 97 Room Air 04/09/17 21:26 97 Room Air 04/09/17 21:18 77 04/09/17 18:06 38.8 81 18 119/57 96 Room Air Physical Exam GENERAL: Awake, alert, uncomfortable-appearing, in no distress HENT: Normocephalic, atraumatic. Boggy nasal turbinates. Dry mucous membranes. Oropharynx unremarkable. EYES: Normal conjunctiva. Sclera non-icteric. NECK: Supple. No nuchal rigidity. FROM. No JVD. RESPIRATORY: Scant intermittent wheezes and rhonchi at the bases, otherwise clear. CARDIAC: Regular rate, normal rhythm. Extremities warm and well perfused. Pulses equal. ABDOMEN: Soft, non-distended. No tenderness to palpation. No rebound or guarding. No masses. RECTAL: Deferred. MUSCULOSKELETAL: Chest examination reveals no tenderness. The back is symmetrical on inspection without obvious abnormality. There is no CVA tenderness to palpation. No joint edema. LOWER EXTREMITIES: Calves are equal size bilaterally and non-tender. No edema. No discoloration. NEURO: Normal sensorium. No sensory or motor deficits noted. SKIN: No rash or jaundice noted. Medical Decision & Procedures ER Provider Diagnostic Interpretation: Xray results as stated below per my and radiologist interpretation: CHEST ONE VIEW PORTABLE CLINICAL HISTORY: Chest pain. COMPARISON STUDY: Chest radiograph September 07, 2016. FINDINGS: Right shoulder arthroplasty is incidentally noted. There is no pneumothorax or pleural effusion. No consolidation is identified. Mild interstitial thickening is similar to exam of September 07, 2016. No consolidation is identified. Cardiomediastinal silhouette is stable with borderline cardiomegaly. IMPRESSION: Mild age indeterminate interstitial thickening which is similar to exam of September 07, 2016. No definite acute findings. Electronically signed by: Bret Scott M.D. 04/09/2017 9:45 PM Dictated Date/Time: 04/09/2017 9:44 PM Laboratory Results 04/09/17 21:17 Red Blood Count 4.26, Mean Corpuscular Volume 84.0, Mean Corpuscular Hemoglobin 28.6, Mean Corpuscular Hemoglobin Concent 34.1 04/09/17 21:17 Test 04/09/17 18:10 04/09/17 21:17 04/09/17 23:14 Influenza Type A Antigen Neg for Influ A (NEG) Influenza Type B Antigen Neg for Influ B (NEG) White Blood Count 2.77 K/uL (4.8-10.8) Red Blood Count 4.26 M/uL (4.2-5.4) Hemoglobin 12.2 g/dL (12.0-16.0) Hematocrit 35.8 % (37-47) Mean Corpuscular Volume 84.0 fL (80-100) Mean Corpuscular Hemoglobin 28.6 pg (25-34) Mean Corpuscular Hemoglobin Concent 34.1 g/dl (32-36) Platelet Count 44 K/uL (130-400) RDW Standard Deviation 46.4 fL (36.4-46.3) RDW Coefficient of Variation 15.1 % (11.5-14.5) Neutrophils % (Manual) 21.4 % Lymphocytes % (Manual) 50.9 % Variant Lymphocytes % (manual) 23.2 % Monocytes % (Manual) 4.5 % Neutrophils # (Manual) 0.59 K/uL (1.4-6.5) Total Absolute Neutrophils 0.59 K/uL (1.4-6.5) Lymphocytes # (Manual) 1.41 K/uL (1.2-3.4) Absolute Variant Lymphocytes 0.64 K/uL Total Absolute Lymphocytes 2.05 K/uL (1.2-3.4) Monocytes # (Manual) 0.12 K/uL (0.11-0.59) Smudge Cells PRESENT Platelet Estimate DECREASED Ovalocytes 1+ Anion Gap 8.0 mmol/L (3-11) Est Creatinine Clear Calc Drug Dose 89.6 ml/min Estimated GFR () 117.9 Estimated GFR (Non- 101.7 BUN/Creatinine Ratio 10.8 (10-20) Lactic Acid Level 1.2 mmol/L (0.4-2.0) Calcium Level 8.0 mg/dl (8.5-10.1) Total Bilirubin 0.5 mg/dl (0.2-1) Direct Bilirubin 0.2 mg/dl (0-0.2) Aspartate Amino Transf (AST/SGOT) 163 U/L (15-37) Alanine Aminotransferase (ALT/SGPT) 59 U/L (12-78) Alkaline Phosphatase 104 U/L (45-117) Troponin I < 0.015 ng/ml (0-0.045) Total Protein 5.9 gm/dl (6.4-8.2) Albumin 2.6 gm/dl (3.4-5.0) Lipase 209 U/L (73-393) Urine Color YELLOW Urine Appearance CLEAR (CLEAR) Urine pH 6.5 (4.5-7.5) Urine Specific [place] 1.013 (1.000-1.030) Urine Protein NEG (NEG) Urine Glucose (UA) NEG (NEG) Urine Ketones NEG (NEG) Urine Occult Blood NEG (NEG) Urine Nitrite NEG (NEG) Urine Bilirubin NEG (NEG) Urine Urobilinogen NEG (NEG) Urine Leukocyte Esterase NEG (NEG) Laboratory results reviewed by me Medications Administered Medications (Trade) Dose Ordered Sig/[place] Route Start Time Stop Time Status Last Admin Dose Admin Sodium Chloride 2,000 ml @ 999 mls/hr Q2H1M STAT IV 04/09/17 20:45 04/09/17 22:45 DC 04/09/17 21:17 999 MLS/HR Acetaminophen (Tylenol Tab) 1,000 mg NOW STAT PO 04/09/17 20:45 04/09/17 20:49 DC 04/09/17 21:18 1,000 MG Ketorolac Tromethamine (Toradol Inj) 15 mg NOW STAT IV 04/09/17 20:45 04/09/17 20:50 DC 04/09/17 21:18 15 MG Metoclopramide HCl (Reglan Inj) 10 mg NOW STAT IV 04/09/17 20:45 04/09/17 20:50 DC 04/09/17 21:17 10 MG Diphenhydramine HCl (Benadryl Inj) 25 mg NOW STAT IV 04/09/17 20:45 04/09/17 20:50 DC 04/09/17 21:17 25 MG Albuterol/ Ipratropium (Duoneb) 12 ml ONE ONCE INH 04/09/17 20:45 04/09/17 20:50 DC 04/09/17 21:47 12 ML Sodium Chloride ([place] Nasal [place]) 2 sprays NOW ONCE NA 04/09/17 20:45 04/09/17 20:50 DC 04/09/17 20:45 2 SPRAYS ECG Per My Interpretation Indication: other Rate (beats per minute): 78 Rhythm: sinus rhythm Findings: no acute ischemic change, other (normal axis) ED Course 2037: The patient was evaluated in room B7. A complete history and physical exam was performed. 23:40: Case d/w Dr. Sherwood [facility] hospitalist, who will admit the patient for further management. Medical Decision I reviewed the patient's past medical history, medications, and the nursing notes as described above. Differential diagnosis: viral syndrome, URI, influenza, pneumonia, bronchitis, asthma exacerbation, ACS, CHF, PE, sepsis. The patient is a 56-year-old woman with a past medical history of rheumatoid arthritis followed by Dr. Patterson, [facility] rheumatology, on Enbrel since emergency Department with cough congestion feverishness and body aches for the past week after being seen at outside hospital ED for similar symptoms per history of present illness. She is uncomfortable but in no acute distress, febrile to 38.8, vital signs otherwise stable. On exam the patient has intermittent scant rhonchi at the bases. Neck supple with FROM. Abd soft, NT/ ND. WBC 2.7 with ANC 0.59. Lactate wnl. CXR unchanged from prior with evidence of PNA. Flu PCR pending. UA pending. Given neutropenic fever with prolonged illness x 1 week will admit for further management. Bld cx pending. Vanc/zosyn ordered. Patient feeling improved after IVF, NSAIDs, nebs. Case d/w Dr. Sherwood [facility] hospitalist, who will admit the patient for further management. Medication Reconcilliation Current Medication List: was personally reviewed by me Blood Pressure Screening Patient's blood pressure: Normal blood pressure Blood pressure disposition: Did not require urgent referral Impression Primary Impression: Neutropenic fever Critical Care I have personally spent greater than 35 minutes of critical care time in the direct management of this patient. This includes bedside care, interpretation of diagnostic studies, and testing, discussion with consultants, patient, and family members, and other required patient management activities. This 35 minutes is in excess of all separately billable procedures. Scribe Attestation The scribe's documentation has been prepared under my direction and personally reviewed by me in its entirety. I confirm that the note above accurately reflects all work, treatment, procedures, and medical decision making performed by me. Departure Information Referrals Irineo Talley M.D. (PCP) Patient Instructions My [facility]
[2017-04-09 21:47] VITALS: PULSE 69; O2SAT 95
--- NOTE | 2017-04-09 21:47 | DIAGNOSTIC IMAGING REPORT ---
CHEST ONE VIEW PORTABLE CLINICAL HISTORY: Chest pain. COMPARISON STUDY: Chest radiograph September 07, 2016. FINDINGS: Right shoulder arthroplasty is incidentally noted. There is no pneumothorax or pleural effusion. No consolidation is identified. Mild interstitial thickening is similar to exam of September 07, 2016. No consolidation is identified. Cardiomediastinal silhouette is stable with borderline cardiomegaly. IMPRESSION: Mild age indeterminate interstitial thickening which is similar to exam of September 07, 2016. No definite acute findings. Electronically signed by: Bret Scott M.D. 04/09/2017 9:45 PM Dictated Date/Time: 04/09/2017 9:44 PM
[2017-04-09] MEDS ORDERED: DEXT1CAP9 PO (21:53)
[2017-04-09 22:04] LABS: ALBUMIN 2.6 gm/dl (3.4-5.0); ALT/SGPT 59 U/L (12-78); AST/SGOT 163 U/L (15-37); BLOOD UREA NITROGEN 7 mg/dl (7-18); CARBON DIOXIDE 28 mmol/L (21-32); CREATININE 0.63 mg/dl (0.60-1.20); GLUCOSE 87 mg/dl (70-99); LIPASE 209 U/L (73-393); POTASSIUM 4.5 mmol/L (3.5-5.1); SODIUM 138 mmol/L (136-145)
[2017-04-09 22:08] LABS: ALKALINE PHOSPHATASE 104 U/L (45-117); TOTAL PROTEIN 5.9 gm/dl (6.4-8.2)
[2017-04-09 22:37] LABS: HEMATOCRIT 35.8 % (37-47); HEMOGLOBIN 12.2 g/dL (12.0-16.0); MEAN CORPUSCULAR HEMOGLOBIN 28.6 pg (25-34); MEAN CORPUSCULAR HGB CONC 34.1 g/dl (32-36); PLATELET COUNT 44 K/uL (130-400); RED CELL DISTRIBUTION WIDTH CV 15.1 % (11.5-14.5); RED CELL DISTRIBUTION WIDTH SD 46.4 fL (36.4-46.3); WHITE BLOOD COUNT 2.77 K/uL (4.8-10.8)
[2017-04-09] MEDS ORDERED: PIPERACILLIN/TAZOBACTAM 4.5 GM/100ML D5W IV STA (23:12)
[2017-04-09] MEDS ORDERED: VANCOMYCIN INJ 1,250 MG in SODIUM CHLORIDE 0.9% 250ML 250 ML IV STA (23:12)
[2017-04-09] MEDS ORDERED: VANCOMYCIN INJ 1,200 MG in SODIUM CHLORIDE 0.9% 500ML 500 ML IV STA (23:12)
[2017-04-09] MEDS ORDERED: VANCOMYCIN CONSULT ACTIVE PRN (23:15)
[2017-04-10 00:14] LABS: INFLUENZA A PCR Neg for Influ A (NEG); INFLUENZA B PCR Neg for Influ B (NEG)
[2017-04-10] MEDS ORDERED: LEVALBUTEROL/IPRATROPIUM NEB INH STA (01:14)
[2017-04-10] MEDS ORDERED: PROCHLORPERAZINE INJ 5 MG in SYRINGE 4 ML IV PRN (01:15)
[2017-04-10] MEDS ORDERED: LEVALBUTEROL/IPRATROPIUM NEB INH PRN (01:15)
[2017-04-10] MEDS ORDERED: IPRATROPIUM BROMIDE NEB SOLN 0.02% 2.5 ML VIAL INH STA (01:26)
[2017-04-10] MEDS ORDERED: LEVALBUTEROL 1.25MG/0.5ML NEB INH STA (01:26)
[2017-04-10 01:28] LABS: NUCLEATED RED BLOOD CELL ABS 0.04 K/uL (0-0)
[2017-04-10] MEDS ORDERED: LEVALBUTEROL 1.25MG/0.5ML NEB INH PRN (01:30)
[2017-04-10] MEDS ORDERED: IPRATROPIUM BROMIDE NEB SOLN 0.02% 2.5 ML VIAL INH PRN (01:30)
[2017-04-10] MEDS ORDERED: SODIUM CHLORIDE 0.9% 1000ML 1,000 ML IV ONE (02:00)
[2017-04-10] MEDS ORDERED: GUAIFENESIN 600 MG TABCR PO ONE (02:00)
[2017-04-10 02:15] VITALS: BP 83/41; PULSE 78; TEMP 36.7; O2SAT 97; Ht 157.5 cm; Wt 63.8 kg
[2017-04-10 04:04] VITALS: BP 84/49; TEMP 36.5
[2017-04-10 06:14] LABS: MEAN CORPUSCULAR HGB CONC 33.2 g/dl (32-36)
[2017-04-10 06:22] LABS: HEMOGLOBIN 10.3 g/dL (12.0-16.0); MEAN CELL VOLUME 83.8 fL (80-100); MEAN CORPUSCULAR HEMOGLOBIN 27.8 pg (25-34); RED CELL DISTRIBUTION WIDTH CV 15.5 % (11.5-14.5); WHITE BLOOD COUNT 2.46 K/uL (4.8-10.8)
[2017-04-10 06:56] LABS: PLATELET COUNT 33 K/uL (130-400)
[2017-04-10 07:11] LABS: ALBUMIN 2.2 gm/dl (3.4-5.0); CALCIUM 6.8 mg/dl (8.5-10.1); CREATININE 0.68 mg/dl (0.60-1.20); POTASSIUM 3.9 mmol/L (3.5-5.1)
[2017-04-10 07:12] VITALS: BP 83/49; PULSE 55; TEMP 36.5; O2SAT 100
[2017-04-10 07:44] LABS: BASO % 0.4 %; BASO ABS # 0.01 K/uL (0-0.2); LYMPH % 41.1 %; LYMPH ABS # 1.01 K/uL (1.2-3.4); MONO % 13.8 %; MONO ABS # 0.34 K/uL (0.11-0.59); NEUT % 44.7 %
--- NOTE | 2017-04-10 08:02 | HISTORY & PHYSICAL EXAMINATION ---
DATE OF ADMISSION: 04/10/2017 PRIMARY CARE PHYSICIAN: Irineo Talley MD. CHIEF COMPLAINT: Dehydration, weakness, cough, chills. HISTORY OF PRESENT ILLNESS: History obtained from patient and records. 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 Recent confinement last August 2016 for pancolitis. The last few days, flu-like symptoms, dry cough, congestion, generalized body aches, nausea and fever. No significant relief with Tylenol. Denies chest pain, or shortness of breath. At the Emergency Room, given vancomycin and Zosyn for possible sepsis. Patient also given Reglan and Benadryl for nausea. Patient currently lethargic. Transient hypoxemia at the ER after IV Benadryl given. MEDICAL HISTORY: As above. Sees [facility] for juvenile RA. Sees [facility] for HCV. As per last outpatient visit 2016 - antiviral therapy deferred until patient demonstrates compliance with clinical visits, question of inappropriate drug abuse. SURGERIES: Shoulder surgery, section. HOME MEDICATIONS: Include vitamin D, Enbrel, Yazmin, Synthroid, Cytomel, Prilosec, Zantac, Carafate, Imitrex. Prednisone 5 mg daily ALLERGIES: BACTRIM, SULFA. FAMILY HISTORY: Cancer. PERSONAL AND SOCIAL HISTORY: Past tobacco abuse. No chronic intake of alcoholic beverages. Disabled. REVIEW OF SYSTEMS: As per HPI, all 10 systems reviewed. All other ROS negative. PHYSICAL EXAMINATION: VITAL SIGNS: Blood pressure was noted to be 119/57, pulse 87, respirations 18, temperature 36.8, sats 97 on room air. GENERAL: Noted to be lethargic. No respiratory distress. SKIN: Normal color. Warm. HEENT: Pale palpebral conjunctiva. No ptosis, Dry mucosa. NECK: Supple, nontender. CHEST: Decreased effort. No tenderness. HEART: Regular rate and rhythm. Question of systolic murmur. ABDOMEN: Soft, nontender. EXTREMITIES: No edema. No gross deformities. No tenderness. NEUROLOGIC: Lethargic. No facial asymmetry. Gait and stance not assessed. LABORATORY DATA: Hemoglobin was noted to be 12.2, hematocrit 35, white cell count 2.77, platelets 44. Sodium 138, potassium 4.5, chloride 102, CO2 28, BUN 7, creatinine 0.6, glucose 87, AST 163. TSH 0.47, ammonia 22. Lactic acid 1.2, procalcitonin normal. UA normal. Chest x-ray, interstitial thickening. ASSESSMENT: 1. Sepsis in an immunocompromised patient History of juvenile rheumatoid arthritis, on Enbrel, prednisone rx Likely secondary to viral bronchitis. 2. 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 Hx HCV cirrhosis, no overt decompensation. 4. Past tobacco abuse. 5. Chronic pain as per records. 6. History of methicillin-resistant Staphylococcus aureus as per records. PLAN: GMF CS. Hold off on antibiotics for now until definite bacterial cause found out. Supportive management for viral bronchitis symptoms. DVT prophylaxis SCDs RE thrombocytopenia. Full code. MTDD
[2017-04-10] MEDS: LEVOTHYROXINE 25 MCG TAB PO SCH (08:29)
[2017-04-10] MEDS: SUCRALFATE 1 GM TAB PO SCH (08:29)
[2017-04-10] MEDS: PANTOprazole SOD 40 MG TAB PO SCH (08:29)
[2017-04-10] MEDS: RANITIDINE HCL 150 MG TAB PO SCH (08:29)
[2017-04-10] MEDS: IBUPROFEN 200 MG TAB PO PRN (08:31)
[2017-04-10] MEDS: LIOTHYRONINE SODIUM 25 MCG TAB PO SCH (09:20)
--- NOTE | 2017-04-10 14:10 | Progress Note ---
Medicine Progress Note Date & Time of Visit: Apr 10, 2017 at 13:46. Subjective Pt was seen and examined Lying in bed with no distress Pt said that she feels much better She said that she continues to have a dry cough She said that her strength seems much better She said that she tolerated clear liquid she does not have nausea and would like her diet to advance Denies any chest pain, palpitation, dizziness and SOB Objective Last 8 Hrs Date Time Temp Pulse Resp B/P (MAP) Pulse Ox O2 Delivery O2 Flow Rate FiO2 04/10/17 10:00 Room Air 04/10/17 07:12 36.5 55 20 83/49 (60) 100 Nasal Cannula 4.0 Physical Exam: General- No acute distress Head- atraumatic Eyes- PERRL, EOMI ENT- oropharynx clear Neck- supple, no JVD Lungs- No crackle or wheezing Heart- +murmur, Regular Abdomen- normal bowel sounds, soft Extremities- no calf tenderness Neuro- alert, oriented x 3; PERRL, EOMI Skin- warm & dry Laboratory Results: Last 24 Hours Test 04/09/17 18:10 04/09/17 21:17 04/09/17 23:14 04/10/17 01:01 Influenza Type A (RT-PCR) Neg for Influ A Influenza Type A Antigen Neg for Influ A Influenza Type B Antigen Neg for Influ B Influenza Type B (RT-PCR) Neg for Influ B White Blood Count 2.77 K/uL Red Blood Count 4.26 M/uL Hemoglobin 12.2 g/dL Hematocrit 35.8 % Mean Corpuscular Volume 84.0 fL Mean Corpuscular Hemoglobin 28.6 pg Mean Corpuscular Hemoglobin Concent 34.1 g/dl Platelet Count 44 K/uL RDW Standard Deviation 46.4 fL RDW Coefficient of Variation 15.1 % Nucleated RBC Absolute Count (auto) 0.04 K/uL Neutrophils % (Manual) 21.4 % Lymphocytes % (Manual) 50.9 % Variant Lymphocytes % (manual) 23.2 % Monocytes % (Manual) 4.5 % Nucleated Red Blood Cells % 1.4 % Neutrophils # (Manual) 0.59 K/uL Total Absolute Neutrophils 0.59 K/uL Lymphocytes # (Manual) 1.41 K/uL Absolute Variant Lymphocytes 0.64 K/uL Total Absolute Lymphocytes 2.05 K/uL Monocytes # (Manual) 0.12 K/uL Smudge Cells PRESENT Platelet Estimate DECREASED Ovalocytes 1+ Sodium Level 138 mmol/L Potassium Level 4.5 mmol/L Chloride Level 102 mmol/L Carbon Dioxide Level 28 mmol/L Anion Gap 8.0 mmol/L Blood Urea Nitrogen 7 mg/dl Creatinine 0.63 mg/dl Est Creatinine Clear Calc Drug Dose 89.6 ml/min Estimated GFR () 117.9 Estimated GFR (Non- 101.7 BUN/Creatinine Ratio 10.8 Random Glucose 87 mg/dl Lactic Acid Level 1.2 mmol/L Calcium Level 8.0 mg/dl Magnesium Level 1.9 mg/dl Total Bilirubin 0.5 mg/dl Direct Bilirubin 0.2 mg/dl Aspartate Amino Transf (AST/SGOT) 163 U/L Alanine Aminotransferase (ALT/SGPT) 59 U/L Alkaline Phosphatase 104 U/L Troponin I < 0.015 ng/ml Total Protein 5.9 gm/dl Albumin 2.6 gm/dl Lipase 209 U/L Procalcitonin < 0.05 ng/ml Thyroid Stimulating Hormone (TSH) 0.470 uIu/ml Urine Color YELLOW Urine Appearance CLEAR Urine pH 6.5 Urine Specific [place] 1.013 Urine Protein NEG Urine Glucose (UA) NEG Urine Ketones NEG Urine Occult Blood NEG Urine Nitrite NEG Urine Bilirubin NEG Urine Urobilinogen NEG Urine Leukocyte Esterase NEG Urine Opiates Screen NEG Urine Methadone, Qualitative NEG Urine Barbiturates NEG Urine Phencyclidine (PCP) Level NEG Ur Amphetamine/Methamphetamine NEG MDMA (Ecstasy) Screen NEG Urine Benzodiazepines Screen NEG Urine Cocaine Metabolite NEG Urine Marijuana (THC) NEG Ammonia 22.0 umol/L Ethyl Alcohol mg/dL < 3.0 mg/dl Test 04/10/17 05:52 White Blood Count 2.46 K/uL Red Blood Count 3.70 M/uL Hemoglobin 10.3 g/dL Hematocrit 31.0 % Mean Corpuscular Volume 83.8 fL Mean Corpuscular Hemoglobin 27.8 pg Mean Corpuscular Hemoglobin Concent 33.2 g/dl Platelet Count 33 K/uL Neutrophils (%) (Auto) 44.7 % Lymphocytes (%) (Auto) 41.1 % Monocytes (%) (Auto) 13.8 % Eosinophils (%) (Auto) 0.0 % Basophils (%) (Auto) 0.4 % Neutrophils # (Auto) 1.10 K/uL Lymphocytes # (Auto) 1.01 K/uL Monocytes # (Auto) 0.34 K/uL Eosinophils # (Auto) 0.00 K/uL Basophils # (Auto) 0.01 K/uL RDW Standard Deviation 48.0 fL RDW Coefficient of Variation 15.5 % Immature Granulocyte % (Auto) 0.0 % Immature Granulocyte # (Auto) 0.00 K/uL Toxic Vacuolation 1+ Platelet Estimate DECREASED Large Platelets 2+ Sodium Level 143 mmol/L Potassium Level 3.9 mmol/L Chloride Level 110 mmol/L Carbon Dioxide Level 26 mmol/L Anion Gap 6.0 mmol/L Blood Urea Nitrogen 8 mg/dl Creatinine 0.68 mg/dl Est Creatinine Clear Calc Drug Dose 83.0 ml/min Estimated GFR () 114.9 Estimated GFR (Non- 99.2 BUN/Creatinine Ratio 11.1 Random Glucose 86 mg/dl Calcium Level 6.8 mg/dl Total Bilirubin 0.4 mg/dl Aspartate Amino Transf (AST/SGOT) 149 U/L Alanine Aminotransferase (ALT/SGPT) 53 U/L Alkaline Phosphatase 85 U/L Total Protein 5.0 gm/dl Albumin 2.2 gm/dl Globulin 2.8 gm/dl Albumin/Globulin Ratio 0.8 Date/Time Source Procedure Growth Status 04/09/17 21:17 Blood Blood Culture Pending Received 04/09/17 21:08 Blood Blood Culture Pending Received Assessment & Plan Flu like symptoms Bronchitis Meet SIRS criteria on presentation with fever, tachycardia, low wbc Seems mostly related to Viral etiology Chest xray showed no infiltrate and UA negative Procalcitonin negative Received IV Vanco and Zosyn in the ER Blood cx pending No more abx given for now until blood cx positive Will D/C IVF Cough related to Viral No Pneumonia on xray Continue cough suppressant History of juvenile rheumatoid arthritis On Enbrel, prednisone Stable 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 Platelet 33 and WBC 2.46 Continue monitor CBC Hx HCV/ cirrhosis No sign of overload DVT px n SCD ( Due to Low platelet) CODE STATUS FULL CODE Current Inpatient Medications: Current Inpatient Medications Medications (Trade) Dose Ordered Sig/[place] Route Start Time Stop Time Status Last Admin Dose Admin Levothyroxine Sodium (Synthroid Tab) 25 mcg DAILYBB PO 04/10/17 06:30 05/10/17 06:29 04/10/17 08:29 25 MCG Liothyronine Sodium (Cytomel Tab) 25 mcg DAILY PO 04/10/17 08:00 05/10/17 08:59 04/10/17 09:20 25 MCG Ranitidine HCl (zANTac TAB) 150 mg DAILY PO 04/10/17 08:00 05/10/17 08:59 04/10/17 08:29 150 MG Sucralfate (Carafate Tab) 1 gm DAILY PO 04/10/17 08:00 05/10/17 08:59 04/10/17 08:29 1 GM Pantoprazole Sodium (Protonix Tab) 40 mg QAM PO 04/10/17 08:00 05/10/17 07:59 04/10/17 08:29 40 MG Prochlorperazine Edisylate 5 mg/ Syringe 5 ml @ 5 mls/min Q6H PRN IV 04/10/17 01:15 05/10/17 01:14 Ibuprofen (Advil Tab) 400 mg Q6H PRN PO 04/10/17 01:15 05/10/17 01:14 04/10/17 08:31 400 MG Sodium Chloride 1,000 ml @ 75 mls/hr [id number] ONCE IV 04/10/17 02:00 04/10/17 15:19 04/10/17 02:52 75 MLS/HR Guaifenesin (Mucinex Contr Rel Tab) 600 mg Q12 PO 04/10/17 21:00 05/10/17 20:59 Acetaminophen (Tylenol Tab) 325 mg Q6H PRN PO 04/10/17 01:15 05/10/17 01:14 Ipratropium [place] (Atrovent 0.02% 0.5MG/2.5ML Neb) 0.5 mg Q4H PRN INH 04/10/17 01:30 05/10/17 01:29 Levalbuterol (Xopenex 1.25MG/ 0.5ML Neb) 1.25 mg Q4H PRN INH 04/10/17 01:30 05/10/17 01:29 Prednisone (PredniSONE TAB) 5 mg DAILY PO 04/10/17 08:00 05/10/17 07:59 04/10/17 09:20 5 MG
[2017-04-10 15:31] VITALS: BP 90/58; PULSE 63; TEMP 36.7; O2SAT 96
[2017-04-10] MEDS: GUAIFENESIN 600 MG TABCR PO SCH (20:07)
[2017-04-10 23:14] VITALS: BP 101/67; PULSE 83; TEMP 37.3; O2SAT 96
[2017-04-11] VITALS: O2SAT 97
[2017-04-11] MEDS: LEVOTHYROXINE 25 MCG TAB PO SCH (06:11)
[2017-04-11] MEDS: SUCRALFATE 1 GM TAB PO SCH (08:11)
[2017-04-11] MEDS: GUAIFENESIN 600 MG TABCR PO SCH ×2 (08:11→20:46)
[2017-04-11] MEDS: PANTOprazole SOD 40 MG TAB PO SCH (08:12)
[2017-04-11] MEDS: IBUPROFEN 200 MG TAB PO PRN (08:12)
[2017-04-11] MEDS: LIOTHYRONINE SODIUM 25 MCG TAB PO SCH (08:12)
[2017-04-11] MEDS: RANITIDINE HCL 150 MG TAB PO SCH (08:12)
[2017-04-11 08:15] VITALS: BP 99/62; PULSE 90; TEMP 38.1; O2SAT 93
[2017-04-11 10:59] VITALS: TEMP 36.8
[2017-04-11] MEDS: ACETAMINOPHEN 325 MG TAB PO PRN (11:01)
[2017-04-11 16:00] VITALS: BP 91/55; PULSE 70; TEMP 36.9; O2SAT 97
--- NOTE | 2017-04-11 17:58 | Progress Note ---
Medicine Progress Note Date & Time of Visit: Apr 11, 2017 at 17:53. Subjective Pt was seen and examined Lying in bed with no distress Pt said that she developed a fever this morning She said that she starting to feel stronger Denies any chest pain, palpitation, dizziness and SOB Objective Last 8 Hrs Date Time Temp Pulse Resp B/P (MAP) Pulse Ox O2 Delivery O2 Flow Rate FiO2 04/11/17 16:00 36.9 70 20 91/55 (67) 97 Room Air 04/11/17 10:59 36.8 04/11/17 10:25 Room Air Physical Exam: General- No acute distress Head- atraumatic Eyes- PERRL, EOMI ENT- oropharynx clear Neck- supple, no JVD Lungs- No crackle or wheezing Heart- +murmur, Regular Abdomen- normal bowel sounds, soft Extremities- no calf tenderness Neuro- alert, oriented x 3; PERRL, EOMI Skin- warm & dry Laboratory Results: Last 24 Hours Test 04/11/17 17:49 Assessment & Plan Flu like symptoms Bronchitis Meet SIRS criteria on presentation with fever, tachycardia, low wbc Seems mostly related to Viral etiology Chest xray showed no infiltrate and UA negative Procalcitonin negative Received IV Vanco and Zosyn in the ER Blood cx no growth IVF Discontinued Fever Unknown etiology UA negative Urine cx no growth Will check for lymes disease and other tick born pathogens Cough related to Viral No Pneumonia on xray Continue cough suppressant improved History of juvenile rheumatoid arthritis On Enbrel, prednisone Stable 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 Platelet 33 and WBC 2.46 Continue monitor CBC Hx HCV/ cirrhosis No sign of overload DVT px n SCD ( Due to Low platelet) CODE STATUS FULL CODE Current Inpatient Medications: Current Inpatient Medications Medications (Trade) Dose Ordered Sig/Montse Route Start Time Stop Time Status Last Admin Dose Admin Levothyroxine Sodium (Synthroid Tab) 25 mcg DAILYBB PO 04/10/17 06:30 05/10/17 06:29 04/11/17 06:11 25 MCG Liothyronine Sodium (Cytomel Tab) 25 mcg DAILY PO 04/10/17 08:00 05/10/17 08:59 04/11/17 08:12 25 MCG Ranitidine HCl (zANTac TAB) 150 mg DAILY PO 04/10/17 08:00 05/10/17 08:59 04/11/17 08:12 150 MG Sucralfate (Carafate Tab) 1 gm DAILY PO 04/10/17 08:00 05/10/17 08:59 04/11/17 08:11 1 GM Pantoprazole Sodium (Protonix Tab) 40 mg QAM PO 04/10/17 08:00 05/10/17 07:59 04/11/17 08:12 40 MG Prochlorperazine Edisylate 5 mg/ Syringe 5 ml @ 5 mls/min Q6H PRN IV 04/10/17 01:15 05/10/17 01:14 Ibuprofen (Advil Tab) 400 mg Q6H PRN PO 04/10/17 01:15 05/10/17 01:14 04/11/17 08:12 400 MG Guaifenesin (Mucinex Contr Rel Tab) 600 mg Q12 PO 04/10/17 21:00 05/10/17 20:59 04/11/17 08:11 600 MG Acetaminophen (Tylenol Tab) 325 mg Q6H PRN PO 04/10/17 01:15 05/10/17 01:14 04/11/17 11:01 325 MG Ipratropium [place] (Atrovent 0.02% 0.5MG/2.5ML Neb) 0.5 mg Q4H PRN INH 04/10/17 01:30 05/10/17 01:29 Levalbuterol (Xopenex 1.25MG/ 0.5ML Neb) 1.25 mg Q4H PRN INH 04/10/17 01:30 05/10/17 01:29 Prednisone (PredniSONE TAB) 5 mg DAILY PO 04/10/17 08:00 05/10/17 07:59 04/11/17 08:11 5 MG Doxycycline Hyclate (Vibramycin Cap) 100 mg BID PO 04/11/17 20:00 04/25/17 19:59 UNV
[2017-04-11] MEDS: DOXYCYCLINE HYCLATE 100 MG CAP PO SCH (20:46)
[2017-04-11 23:13] VITALS: BP 91/57; PULSE 67; TEMP 36.8; O2SAT 97
[2017-04-12] VITALS (8 sets, daily range): BP systolic 93–103; BP diastolic 56–63; PULSE 75–87; TEMP 37–38.5; O2SAT 95–96
[2017-04-12] MEDS: LEVOTHYROXINE 25 MCG TAB PO SCH (05:55)
--- NOTE | 2017-04-12 07:00 | Clinical Documentation Query ---
CLINICAL DOCUMENTATION QUERY 56 year old female who presents to the Emergency Room with complaints of persistent flu symptoms. Admitting physician had documented sepsis. Patient presented febrile, had hypotension, and is leukopenic. Currently the record is stating SIRS. Per ICD 10 coding indexes SIRS can only be coded when it is due to noninfectious processes. In your clinical opinion is this patient being managed for: ( ) Early Sepsis in immunocompromised patient treated with fluid resuscitation and IV antibiotics. ( ) Not Agree/ruled out Please clarify and document your clinical opinion in the progress notes and discharge summary. Terms such as "probable", "suspected", "likely", "questionable", "possible", or "still to be ruled out" are acceptable. IF IN AGREEMENT, YOU MUST DOCUMENT ABOVE DIAGNOSTIC STATEMENT IN DAILY PROGRESS NOTES AND DISCHARGE SUMMARY. This document is not part of the patient's record. Thank You, James Fisher, RN [phone]
[2017-04-12 07:48] LABS: MEAN CORPUSCULAR HGB CONC 34.3 g/dl (32-36)
[2017-04-12] MEDS: RANITIDINE HCL 150 MG TAB PO SCH (07:54)
[2017-04-12] MEDS: PANTOprazole SOD 40 MG TAB PO SCH (07:54)
[2017-04-12] MEDS: GUAIFENESIN 600 MG TABCR PO SCH ×2 (07:55→20:48)
[2017-04-12] MEDS: LIOTHYRONINE SODIUM 25 MCG TAB PO SCH (07:55)
[2017-04-12] MEDS: DOXYCYCLINE HYCLATE 100 MG CAP PO SCH ×2 (07:55→20:48)
[2017-04-12] MEDS: SUCRALFATE 1 GM TAB PO SCH (07:55)
[2017-04-12 07:58] LABS: HEMATOCRIT 32.1 % (37-47); MEAN CELL VOLUME 83.8 fL (80-100); MEAN CORPUSCULAR HEMOGLOBIN 28.7 pg (25-34); RED CELL DISTRIBUTION WIDTH CV 15.3 % (11.5-14.5); RED CELL DISTRIBUTION WIDTH SD 47.2 fL (36.4-46.3); WHITE BLOOD COUNT 3.71 K/uL (4.8-10.8)
[2017-04-12] MEDS: ACETAMINOPHEN 325 MG TAB PO PRN ×2 (08:04→23:53)
[2017-04-12 08:18] LABS: PLATELET COUNT 35 K/uL (130-400)
--- NOTE | 2017-04-12 15:39 | Progress Note ---
Medicine Progress Note Date & Time of Visit: Apr 12, 2017 at 15:35. Subjective Pt was seen and examined Lying in bed with no distress Pt said she had a low grade fever early this morning She said that she feels tired today She said that whenever she has fever, it causes her to have headache She said that she does have some tenderness in her back and neck Denies any blurry vision and hallucination She said that she had a sister that was dx with meningitis back in November She said that her cough improves Denies any chest pain, palpitation, dizziness and sob Objective Last 8 Hrs Date Time Temp Pulse Resp B/P (MAP) Pulse Ox O2 Delivery O2 Flow Rate FiO2 04/12/17 13:34 37.1 04/12/17 09:11 37.5 04/12/17 08:00 Room Air 04/12/17 07:54 38.2 04/12/17 07:38 37.9 84 20 96/58 (71) 95 Room Air Physical Exam: General- No acute distress Head- atraumatic Eyes- PERRL, EOMI ENT- oropharynx clear Neck- supple, no JVD Lungs- No crackle or wheezing Heart- +murmur, Regular Abdomen- normal bowel sounds, soft Extremities- no calf tenderness Neuro- alert, oriented x 3; PERRL, EOMI Skin- warm & dry Laboratory Results: Last 24 Hours Test 04/11/17 18:19 04/12/17 07:29 Lyme Disease IgG Antibody NEG Lyme Disease IgM Antibody NEG White Blood Count 3.71 K/uL Red Blood Count 3.83 M/uL Hemoglobin 11.0 g/dL Hematocrit 32.1 % Mean Corpuscular Volume 83.8 fL Mean Corpuscular Hemoglobin 28.7 pg Mean Corpuscular Hemoglobin Concent 34.3 g/dl Platelet Count 35 K/uL RDW Standard Deviation 47.2 fL RDW Coefficient of Variation 15.3 % Neutrophils % (Manual) 27.4 % Lymphocytes % (Manual) 42.5 % Variant Lymphocytes % (manual) 24.8 % Monocytes % (Manual) 3.5 % Eosinophils % (Manual) 1.8 % Neutrophils # (Manual) 1.02 K/uL Total Absolute Neutrophils 1.02 K/uL Lymphocytes # (Manual) 1.58 K/uL Absolute Variant Lymphocytes 0.92 K/uL Total Absolute Lymphocytes 2.50 K/uL Monocytes # (Manual) 0.13 K/uL Eosinophils # (Manual) 0.07 K/uL Platelet Estimate DECREASED Large Platelets 1+ Assessment & Plan Flu like symptoms Bronchitis Meet SIRS criteria on presentation with fever, tachycardia, low wbc Seems mostly related to Viral etiology Chest xray showed no infiltrate and UA negative Procalcitonin negative Received IV Vanco and Zosyn in the ER Blood cx no growth IVF Discontinued Fever Unknown etiology UA negative Urine cx no growth Blood cx no growth Lyme titer negative will check for Ehrlichia Starting on doxy ID consulting Headache No neck stiffness on exam No hallucination or changes in mental status Kernig sign and brudzinski signs inconclusive since pt has hx of back and neck tenderness Continue monitor closely Elevated AST Monitor liver enzymes Cough related to Viral No Pneumonia on xray Continue cough suppressant improved History of juvenile rheumatoid arthritis On Enbrel, prednisone Stable 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 Platelet 33 and WBC 2.46 Continue monitor CBC Hx HCV/ cirrhosis No sign of overload DVT px n SCD ( Due to Low platelet) CODE STATUS FULL CODE Current Inpatient Medications: Current Inpatient Medications Medications (Trade) Dose Ordered Sig/[place]se Route Start Time Stop Time Status Last Admin Dose Admin Levothyroxine Sodium (Synthroid Tab) 25 mcg DAILYBB PO 04/10/17 06:30 05/10/17 06:29 04/12/17 05:55 25 MCG Liothyronine Sodium (Cytomel Tab) 25 mcg DAILY PO 04/10/17 08:00 05/10/17 08:59 04/12/17 07:55 25 MCG Ranitidine HCl (zANTac TAB) 150 mg DAILY PO 04/10/17 08:00 05/10/17 08:59 04/12/17 07:54 150 MG Sucralfate (Carafate Tab) 1 gm DAILY PO 04/10/17 08:00 05/10/17 08:59 04/12/17 07:55 1 GM Pantoprazole Sodium (Protonix Tab) 40 mg QAM PO 04/10/17 08:00 05/10/17 07:59 04/12/17 07:54 40 MG Prochlorperazine Edisylate 5 mg/ Syringe 5 ml @ 5 mls/min Q6H PRN IV 04/10/17 01:15 05/10/17 01:14 Ibuprofen (Advil Tab) 400 mg Q6H PRN PO 04/10/17 01:15 05/10/17 01:14 04/11/17 08:12 400 MG Guaifenesin (Mucinex Contr Rel Tab) 600 mg Q12 PO 04/10/17 21:00 05/10/17 20:59 04/12/17 07:55 600 MG Acetaminophen (Tylenol Tab) 325 mg Q6H PRN PO 04/10/17 01:15 05/10/17 01:14 04/12/17 08:04 325 MG Ipratropium [place] (Atrovent 0.02% 0.5MG/2.5ML Neb) 0.5 mg Q4H PRN INH 04/10/17 01:30 05/10/17 01:29 Levalbuterol (Xopenex 1.25MG/ 0.5ML Neb) 1.25 mg Q4H PRN INH 04/10/17 01:30 05/10/17 01:29 Prednisone (PredniSONE TAB) 5 mg DAILY PO 04/10/17 08:00 05/10/17 07:59 04/12/17 07:55 5 MG Doxycycline Hyclate (Vibramycin Cap) 100 mg BID PO 04/11/17 20:00 04/25/17 19:59 04/12/17 07:55 100 MG
[2017-04-12] MEDS: IBUPROFEN 200 MG TAB PO PRN (23:58)
[2017-04-13 01:10] VITALS: TEMP 37.7
[2017-04-13 05:30] VITALS: TEMP 36.7
[2017-04-13] MEDS: LEVOTHYROXINE 25 MCG TAB PO SCH (05:34)
[2017-04-13 06:06] LABS: MEAN CORPUSCULAR HGB CONC 32.6 g/dl (32-36)
[2017-04-13 06:25] LABS: HEMATOCRIT 30.7 % (37-47); MEAN CELL VOLUME 83.7 fL (80-100); MEAN CORPUSCULAR HEMOGLOBIN 27.2 pg (25-34); RED CELL DISTRIBUTION WIDTH SD 46.2 fL (36.4-46.3); WHITE BLOOD COUNT 2.99 K/uL (4.8-10.8)
[2017-04-13 06:34] LABS: CALCIUM 8.1 mg/dl (8.5-10.1); CREATININE 0.45 mg/dl (0.60-1.20); POTASSIUM 3.6 mmol/L (3.5-5.1)
[2017-04-13 06:35] LABS: BASO % 0.3 %; BASO ABS # 0.01 K/uL (0-0.2); EOS % 0.3 %; EOS ABS # 0.01 K/uL (0-0.5); LYMPH % 41.5 %; LYMPH ABS # 1.24 K/uL (1.2-3.4); MONO % 10.7 %; MONO ABS # 0.32 K/uL (0.11-0.59); NEUT % 47.2 %; NEUT ABS # 1.41 K/uL (1.4-6.5); PLATELET COUNT 31 K/uL (130-400)
[2017-04-13 07:45] VITALS: BP 91/58; PULSE 67; TEMP 36.7; O2SAT 95
[2017-04-13 08:00] VITALS: O2SAT 95
[2017-04-13] MEDS: GUAIFENESIN 600 MG TABCR PO SCH ×2 (08:47→20:09)
[2017-04-13] MEDS: PANTOprazole SOD 40 MG TAB PO SCH (08:47)
[2017-04-13] MEDS: RANITIDINE HCL 150 MG TAB PO SCH (08:47)
[2017-04-13] MEDS: LIOTHYRONINE SODIUM 25 MCG TAB PO SCH (08:48)
[2017-04-13] MEDS: SUCRALFATE 1 GM TAB PO SCH (08:48)
[2017-04-13] MEDS: DOXYCYCLINE HYCLATE 100 MG CAP PO SCH (08:48)
--- NOTE | 2017-04-13 13:22 | Progress Note ---
Progress Note Date of Service Apr 13, 2017. Progress Note ID Consult Dictated #[id number] A/P: 1. fever - intermittent -Potential source could be underlying untreated HCV, also consider viral uri, RA (currently not compliant with HCV or RA treatment), DVT -No bacterial infection found, can stop doxy from ID standpoint, will defer to primary -Strongly encourage f/u with HCV provider post d/c -Thank you
--- NOTE | 2017-04-13 14:21 | Progress Note ---
Medicine Progress Note Date & Time of Visit: Apr 13, 2017 at 14:13. Subjective patient seen resting in bed, comfortable states she feels improved compared to yesterday less cough, congestion denies shortness of breath, dizziness, weakness, bleeding no other symptoms Objective Last 8 Hrs Date Time Temp Pulse Resp B/P (MAP) Pulse Ox O2 Delivery O2 Flow Rate FiO2 04/13/17 08:00 95 Room Air 04/13/17 08:00 Room Air 04/13/17 07:45 36.7 67 18 91/58 (69) 95 Room Air Physical Exam: General- oriented x 3, not in distress, speaks in sentences with no effort Head- atraumatic Eyes- PERRL, EOMI, anicteric ENT- oropharynx clear Neck- supple, no JVD, no adenopathy, no thyromegaly; carotids +2/2 Lungs- clear breath sounds bilaterally Heart- regular rhythm; no murmur, normal rate Abdomen- normal bowel sounds, soft, nontender Extremities- no pretibial edema, no calf tenderness; peripheral pulses intact Neuro- alert, oriented x 3; no gross focal tenderness Skin- warm & dry Laboratory Results: Last 24 Hours Test 04/13/17 05:21 White Blood Count 2.99 K/uL Red Blood Count 3.67 M/uL Hemoglobin 10.0 g/dL Hematocrit 30.7 % Mean Corpuscular Volume 83.7 fL Mean Corpuscular Hemoglobin 27.2 pg Mean Corpuscular Hemoglobin Concent 32.6 g/dl Platelet Count 31 K/uL Neutrophils (%) (Auto) 47.2 % Lymphocytes (%) (Auto) 41.5 % Monocytes (%) (Auto) 10.7 % Eosinophils (%) (Auto) 0.3 % Basophils (%) (Auto) 0.3 % Neutrophils # (Auto) 1.41 K/uL Lymphocytes # (Auto) 1.24 K/uL Monocytes # (Auto) 0.32 K/uL Eosinophils # (Auto) 0.01 K/uL Basophils # (Auto) 0.01 K/uL RDW Standard Deviation 46.2 fL RDW Coefficient of Variation 15.0 % Immature Granulocyte % (Auto) 0.0 % Immature Granulocyte # (Auto) 0.00 K/uL Platelet Estimate SIGNIFIC DECREASED Giant Platelets 3+ Sodium Level 142 mmol/L Potassium Level 3.6 mmol/L Chloride Level 108 mmol/L Carbon Dioxide Level 25 mmol/L Anion Gap 8.0 mmol/L Blood Urea Nitrogen 12 mg/dl Creatinine 0.45 mg/dl Est Creatinine Clear Calc Drug Dose 125.4 ml/min Estimated GFR () 131.7 Estimated GFR (Non- 113.6 BUN/Creatinine Ratio 25.3 Random Glucose 76 mg/dl Calcium Level 8.1 mg/dl Total Bilirubin 0.9 mg/dl Aspartate Amino Transf (AST/SGOT) 65 U/L Alanine Aminotransferase (ALT/SGPT) 31 U/L Alkaline Phosphatase 71 U/L Total Protein 5.0 gm/dl Albumin 2.0 gm/dl Globulin 3.0 gm/dl Albumin/Globulin Ratio 0.7 Assessment & Plan 56 year old female with history of Juvenile Rheumatoid Arthritis, Chronic Leukopenia and Thrombocytopenia, HCV Flu like symptoms, likely Upper Respiratory Tract Infection, Viral? Meet SIRS criteria on presentation with fever, tachycardia, low wbc Seems mostly related to Viral etiology Chest xray showed no infiltrate and UA negative Flu Test Negative Procalcitonin negative Blood cx no growth -- d/c antibiotics -- monitor Fever, Intermittent - from Viral Illness? HCV? RA? UA negative Urine cx no growth Blood cx no growth Lyme titer negative -- ID on board recommend to d/c antibiotics and monitor - outpatient treatment for HCV and RA Pancytopenia History of Chronic leukopenia/Thrombocytopenia - from systemic viral illness? - levels are lower compared to last year - will consult Hematology Dr. Lerner Headache No neck stiffness on exam No hallucination or changes in mental status - resolved Elevated AST - improving History of juvenile rheumatoid arthritis On Enbrel, prednisone Stable Hx HCV/ cirrhosis compensated DVT px n SCD ( Due to Low platelet) CODE STATUS FULL CODE Current Inpatient Medications: Current Inpatient Medications Medications (Trade) Dose Ordered Sig/[place]se Route Start Time Stop Time Status Last Admin Dose Admin Levothyroxine Sodium (Synthroid Tab) 25 mcg DAILYBB PO 04/10/17 06:30 05/10/17 06:29 04/13/17 05:34 25 MCG Liothyronine Sodium (Cytomel Tab) 25 mcg DAILY PO 04/10/17 08:00 05/10/17 08:59 04/13/17 08:48 25 MCG Ranitidine HCl (zANTac TAB) 150 mg DAILY PO 04/10/17 08:00 05/10/17 08:59 04/13/17 08:47 150 MG Sucralfate (Carafate Tab) 1 gm DAILY PO 04/10/17 08:00 05/10/17 08:59 04/13/17 08:48 1 GM Pantoprazole Sodium (Protonix Tab) 40 mg QAM PO 04/10/17 08:00 05/10/17 07:59 04/13/17 08:47 40 MG Prochlorperazine Edisylate 5 mg/ Syringe 5 ml @ 5 mls/min Q6H PRN IV 04/10/17 01:15 05/10/17 01:14 Ibuprofen (Advil Tab) 400 mg Q6H PRN PO 04/10/17 01:15 05/10/17 01:14 04/12/17 23:58 400 MG Guaifenesin (Mucinex Contr Rel Tab) 600 mg Q12 PO 04/10/17 21:00 05/10/17 20:59 04/13/17 08:47 600 MG Acetaminophen (Tylenol Tab) 325 mg Q6H PRN PO 04/10/17 01:15 05/10/17 01:14 04/12/17 23:53 325 MG Ipratropium [place] (Atrovent 0.02% 0.5MG/2.5ML Neb) 0.5 mg Q4H PRN INH 04/10/17 01:30 05/10/17 01:29 Levalbuterol (Xopenex 1.25MG/ 0.5ML Neb) 1.25 mg Q4H PRN INH 04/10/17 01:30 05/10/17 01:29 Prednisone (PredniSONE TAB) 5 mg DAILY PO 04/10/17 08:00 05/10/17 07:59 04/13/17 08:47 5 MG
--- NOTE | 2017-04-13 14:24 | INFECT. DISEASE CONSULTATION ---
DATE OF CONSULTATION: 04/13/2017 HISTORY OF PRESENT ILLNESS: This is a 56-year-old female who was admitted to the hospital secondary to weakness and cough. She does admit to some flu-like symptoms prior to admission with generalized body aches. She did have a negative flu swab. She also had a negative Lyme titer. Blood cultures were obtained in the ER and so far are negative to date. She is on doxycycline. She has had persistent fevers throughout her hospital stay. On the 16th, her T-max was 38.8; on the 17, she was afebrile; on the 18, her T-max was 38.1; on the 19th, it was 38.5 and overnight it was 37.7. She continues to complain of pain with deep inspiration, which she does attribute to her cough. She states this is dry in nature. She denies any hemoptysis. She denies any headache or neck pain. She has no visual changes. She has no arthralgias or myalgias. She has no joint swelling. She does have a history of rheumatoid arthritis and she is on Enbrel; however, she states she has not followed up with her rheumatoid arthritis physician in quite some time. She also has a history of hepatitis C. She does not know when she was diagnosed. She states that she follows up with GI, but has not been a candidate for treatment and has not had recent blood work done with regards to her viral load. She currently denies any chest pain. She has no nausea, vomiting or diarrhea. Her appetite is stable. She has no abdominal pain. Her remaining review of systems is reviewed and is unremarkable. PAST MEDICAL HISTORY: Significant for rheumatoid arthritis, hepatitis C, osteoarthritis, hypothyroidism, leukopenia and thrombocytopenia, which has been attributed to her rheumatoid arthritis treatment. Per the H&P, her hepatitis C treatment has been on hold secondary to noncompliance with visit and also drug use. Her urine drug screen here was negative. PAST SURGICAL HISTORY: Significant for and shoulder surgery. ALLERGIES: SHE IS ALLERGIC TO SULFA. FAMILY HISTORY: Noncontributory. SOCIAL HISTORY: Significant for history of tobacco use. She denies alcoholic beverages. There is a reported history of drug use. CURRENT MEDICATIONS: Include doxycycline, Mucinex, Cytomel, Zantac, Carafate, Protonix, prednisone, Synthroid, Atrovent, Xopenex, Advil and Tylenol. PHYSICAL EXAMINATION: VITAL SIGNS: She currently is afebrile and has been since yesterday. Pulse 67, respiratory rate 18, blood pressure is 91/58, oxygen saturation is 95% on room air. GENERAL: She is awake, alert and oriented x3. She is in no acute distress. HEENT: Mucous membranes are moist. Extraocular muscles are intact. HEART: Regular. There is a systolic ejection murmur. LUNGS: Clear. ABDOMEN: Soft. EXTREMITIES: There is no lower extremity edema. SKIN: Without rash . hands consistent with changes due to rheumatoid arthritis. LABORATORY STUDIES: CBC today reveals a white blood cell count of 2.9, hemoglobin 10, platelets are 31. Chemistry panel reveals a sodium of 142, potassium 3.6, chloride 108, bicarbonate 25, BUN 12, creatinine 0.5, glucose is 76. Procalcitonin was negative on the 16th. The TSH was normal on admission and no sed rate has been done. Urinalysis is unremarkable. Urine drug screen is unremarkable and alcohol level is negative. Flu swab is negative. Lyme titer is negative. Blood cultures are negative from the 16th x2 sets. Chest x-ray was unremarkable for infiltrate. ASSESSMENT AND PLAN: Fever, likely noninfectious in etiology, but certainly could be due to her underlying untreated hepatitis C. She did have elevated LFTs on admission, which are improving and she does admit to having some evidence of liver damage, suggests cirrhosis on previous ultrasound and certainly this could be a cause for her fever. Also, noninfectious causes such as her underlying rheumatoid arthritis, so she has been off of her Enbrel for some time, could be the etiology. Another non-infectious source could potentially be DVT and she has not had any workup for that. I do not see any indication for doxycycline at this time as her Lyme screen is negative and she does not have any risk factor for Lyme disease. She also has no evidence of community-acquired pneumonia. Her blood cultures and flu swab are negative. Certainly, her thrombocytopenia and leukopenia could be due to untreated hepatitis C as well and she is encouraged strongly to follow with her hep C provider upon discharge from the hospital. There are no further ID recommendations at this time. IVORY
[2017-04-13 15:21] VITALS: BP 94/60; PULSE 76; TEMP 37.1; O2SAT 98
[2017-04-13 16:00] VITALS: O2SAT 98
[2017-04-14] VITALS: BP 99/61; TEMP 36.6; O2SAT 97
[2017-04-14] MEDS: LEVOTHYROXINE 25 MCG TAB PO SCH (06:52)
[2017-04-14 07:56] VITALS: BP 89/56; PULSE 62; TEMP 36.6; O2SAT 96
[2017-04-14 08:10] VITALS: O2SAT 97
[2017-04-14 08:27] LABS: HEMATOCRIT 32.4 % (37-47); HEMOGLOBIN 10.7 g/dL (12.0-16.0); MEAN CELL VOLUME 83.9 fL (80-100); MEAN CORPUSCULAR HEMOGLOBIN 27.7 pg (25-34); PLATELET COUNT 41 K/uL (130-400); RED CELL DISTRIBUTION WIDTH CV 14.8 % (11.5-14.5); RED CELL DISTRIBUTION WIDTH SD 45.8 fL (36.4-46.3); WHITE BLOOD COUNT 3.15 K/uL (4.8-10.8)
[2017-04-14 08:28] LABS: BASO % 0.6 %; BASO ABS # 0.02 K/uL (0-0.2); EOS ABS # 0.03 K/uL (0-0.5); LYMPH % 35.2 %; LYMPH ABS # 1.11 K/uL (1.2-3.4); MONO % 15.6 %; MONO ABS # 0.49 K/uL (0.11-0.59); NEUT % 47.6 %
[2017-04-14] MEDS: PANTOprazole SOD 40 MG TAB PO SCH (09:02)
[2017-04-14] MEDS: RANITIDINE HCL 150 MG TAB PO SCH (09:02)
[2017-04-14] MEDS: LIOTHYRONINE SODIUM 25 MCG TAB PO SCH (09:02)
[2017-04-14] MEDS: SUCRALFATE 1 GM TAB PO SCH (09:02)
[2017-04-14] MEDS: GUAIFENESIN 600 MG TABCR PO SCH (09:02)
--- NOTE | 2017-04-14 13:01 | Progress Note ---
Medicine Progress Note Date & Time of Visit: Apr 14, 2017 at 12:52. Subjective resting in bedside chair, comfortable in good spirits states she feels better overall, best in 3 weeks afebrile denies headache, cough, dyspnea , chest pain, abdominal pain, nausea/vomiting, diarrhea, problems with urination denies other symptoms states she is ready and would like to be discharged today Objective Last 8 Hrs Date Time Temp Pulse Resp B/P (MAP) Pulse Ox O2 Delivery O2 Flow Rate FiO2 04/14/17 08:10 97 Room Air 04/14/17 08:00 Room Air 04/14/17 07:56 36.6 62 16 89/56 (67) 96 Room Air Physical Exam: General- oriented x 3, not in distress, speaks in sentences with no effort Eyes- anicteric ENT- oropharynx clear Neck- supple, no JVD Lungs- clear breath sounds bilaterally , no rales/wheezing Heart- regular rhythm; no murmur, normal rate Abdomen- normal bowel sounds, soft, nontender Extremities- no pretibial edema, no calf tenderness Neuro- alert, oriented x 3; no gross focal tenderness Skin- warm & dry Laboratory Results: Last 24 Hours Test 04/14/17 07:38 White Blood Count 3.15 K/uL Red Blood Count 3.86 M/uL Hemoglobin 10.7 g/dL Hematocrit 32.4 % Mean Corpuscular Volume 83.9 fL Mean Corpuscular Hemoglobin 27.7 pg Mean Corpuscular Hemoglobin Concent 33.0 g/dl Platelet Count 41 K/uL Neutrophils (%) (Auto) 47.6 % Lymphocytes (%) (Auto) 35.2 % Monocytes (%) (Auto) 15.6 % Eosinophils (%) (Auto) 1.0 % Basophils (%) (Auto) 0.6 % Neutrophils # (Auto) 1.50 K/uL Lymphocytes # (Auto) 1.11 K/uL Monocytes # (Auto) 0.49 K/uL Eosinophils # (Auto) 0.03 K/uL Basophils # (Auto) 0.02 K/uL RDW Standard Deviation 45.8 fL RDW Coefficient of Variation 14.8 % Immature Granulocyte % (Auto) 0.0 % Immature Granulocyte # (Auto) 0.00 K/uL Platelet Estimate SIGNIFIC DECREASED Large Platelets 1+ Assessment & Plan 56 year old female with history of Juvenile Rheumatoid Arthritis, Chronic Leukopenia and Thrombocytopenia, HCV Flu like symptoms, likely Upper Respiratory Tract Infection, Viral Etiology Meet SIRS criteria on presentation with fever, tachycardia, low wbc Chest xray showed no infiltrate and UA negative Flu Test Negative Procalcitonin negative Blood cx no growth --initially placed on Vanco, Zosyn and Doxycycline felt to have viral upper respiratory tract infection antibiotics discontinued continued to improve Fever, Intermittent - from Viral Illness? Underlying HCV? RA? Work up unrevealing UA negative Urine cx no growth Blood cx no growth Lyme titer negative -- ID consulted recommend to d/c antibiotics remained afebrile monitor - outpatient treatment for HCV and RA- ff up with Specialists Pancytopenia History of Chronic leukopenia/Thrombocytopenia - from systemic viral illness? - levels are lower compared to last year seems to be gradually improving - on discharge day 04/14/17 WBC 3.15 Hg 10.7 Plt 41 Peripheral Smear done: The main findings present are non-specific leukopenia and thrombocytopenia in keeping with patient history. No overt changes of myelodysplasia or other morphologic abnormalities are present. - consulted [facility] Dr. Mcfadden likely from bone marrow suppression from viral illness repeat CBC in 1 week ff up with Dr. Mcfadden in 2 weeks Headache No neck stiffness on exam No hallucination or changes in mental status - resolved Elevated AST - improving 163 to 65 monitor History of juvenile rheumatoid arthritis On Enbrel, prednisone - advised to hold Enbrel until ff up with PCP/[employer] Super[employer] Hx HCV/ cirrhosis compensated DVT px n SCD ( Due to Low platelet) CODE STATUS FULL CODE Disposition d/c home ff up with PCP in 3-5 days Current Inpatient Medications: Current Inpatient Medications Medications (Trade) Dose Ordered Sig/[place] Route Start Time Stop Time Status Last Admin Dose Admin Levothyroxine Sodium (Synthroid Tab) 25 mcg DAILYBB PO 04/10/17 06:30 05/10/17 06:29 04/14/17 06:52 25 MCG Liothyronine Sodium (Cytomel Tab) 25 mcg DAILY PO 04/10/17 08:00 05/10/17 08:59 04/14/17 09:02 25 MCG Ranitidine HCl (zANTac TAB) 150 mg DAILY PO 04/10/17 08:00 05/10/17 08:59 04/14/17 09:02 150 MG Sucralfate (Carafate Tab) 1 gm DAILY PO 04/10/17 08:00 05/10/17 08:59 04/14/17 09:02 1 GM Pantoprazole Sodium (Protonix Tab) 40 mg QAM PO 04/10/17 08:00 05/10/17 07:59 04/14/17 09:02 40 MG Prochlorperazine Edisylate 5 mg/ Syringe 5 ml @ 5 mls/min Q6H PRN IV 04/10/17 01:15 05/10/17 01:14 Ibuprofen (Advil Tab) 400 mg Q6H PRN PO 04/10/17 01:15 05/10/17 01:14 04/12/17 23:58 400 MG Guaifenesin (Mucinex Contr Rel Tab) 600 mg Q12 PO 04/10/17 21:00 05/10/17 20:59 04/14/17 09:02 600 MG Acetaminophen (Tylenol Tab) 325 mg Q6H PRN PO 04/10/17 01:15 05/10/17 01:14 04/12/17 23:53 325 MG Ipratropium [place] (Atrovent 0.02% 0.5MG/2.5ML Neb) 0.5 mg Q4H PRN INH 04/10/17 01:30 05/10/17 01:29 Levalbuterol (Xopenex 1.25MG/ 0.5ML Neb) 1.25 mg Q4H PRN INH 04/10/17 01:30 05/10/17 01:29 Prednisone (PredniSONE TAB) 5 mg DAILY PO 04/10/17 08:00 05/10/17 07:59 04/14/17 09:02 5 MG
[2017-04-14] MEDS ORDERED: PRD5 PO (13:08)
--- NOTE | 2017-04-14 13:16 | Discharge Instructions ---
Discharge Instructions Date of Service Apr 14, 2017. Admission Reason for Admission: Sepsis Discharge Discharge Diagnosis / Problem: FEVER Discharge Goals Goal(s): Diagnostic testing, Therapeutic intervention Activity Recommendations Activity Limitations: as noted below (NO HEAVY EXERTION UNTIL RE-EVALUATED BY PRIMARY CARE PHYSICIAN) Lifting Limitations: until after follow-up appointment Exercise/Sports Limitations: until after follow-up appointment . Instructions / Follow-Up Instructions / Follow-Up PLEASE HOLD ENBREL FOR NOW, UNTIL FOLLOW UP WITH PRIMARY CARE PHYSICIAN. CALL PRIMARY CARE PHYSICIAN OR RETURN TO ER IMMEDIATELY IF WITH RECURRENCE OF SYMPTOMS. DO NOT TAKE ASPIRIN, IBUPROFEN, NAPROXEN UNTIL RE-EVALUATED BY YOUR PRIMARY CARE PHYSICIAN. FOLLOW UP WITH DR. MICHELLE ON Wednesday04/19/17 AT 11:00AM. FOLLOW UP WITH CHIP TUNER DR. JOSEP DEJESUS IN 2 WEEKS. TEL. NO. [phone] FOLLOW UP WITH MIX MAKER AND HOT PLATE PLYWOOD PRESS OPERATOR SCHEDULED. Current Hospital Diet Patient's current hospital diet: AHA Diet (Heart Healthy) Discharge Diet Recommended Diet: AHA Diet (Heart Healthy) Pending Studies Studies pending at discharge: yes List of pending studies: REPEAT BLOOD WORK C/O PRIMARY CARE PHYSICIAN. Medical Emergencies . Who to Call and When: Medical Emergencies: If at any time you feel your situation is an emergency, please call 911 immediately. . Non-Emergent Contact Non-Emergency issues call your: Primary Care Provider Call Non-Emergent contact if: you have a fever, your pain is not controlled, your pain is worsening, you have any medication questions . . "Provider Documentation" section prepared by Jason Castaneda. . VTE Core Measure Inpt VTE Proph given/why not?: SCD's
[2017-04-14 13:42] VITALS: BP 89/56; PULSE 62; TEMP 36.6; O2SAT 97
--- NOTE | 2017-04-14 20:25 | Medical Consult ---
Consultation Date of Consultation: Apr 14, 2017. Attending Physician: Jason Castaneda MD History of Present Illness Hematology/Oncology consult: Evaluation management of pancytopenia. Date of consultation: 04/14/2017 HPI: 56-year-old female, a known case of rheumatoid arthritis for the last 40 years, chronic at CV positive, hypothyroidism, has mild thrombocytopenia for the last 6 years, admitted for increasing cough, fever, generalized weakness on 04/09/2017. Hematology consultation because of pancytopenia , I saw her bedside earlier in the day, she was sitting quite comfortable, she does complain of multiple joint pain, she is on small dose of prednisone for a long time, she is on Enbrel for the last 8 to 10 years, she follows with a schedule analyst at [facility], now gradually getting better, she says that she is ambulating well by herself, has chronic joint pain, no new nausea or vomiting at this time, no fever when I saw her. She denies any increasing nausea, vomiting, no diarrhea, no constipation, no bleeding from any sites. REVIEW OF SYSTEMS: GENERAL: No recent change in weight, she had a weakness and fatigue but it has improved, no fever at present, no sweats or chills. SKIN: No new skin rash, no bruising. HEAD: No new headache, no dizziness. EYES: No recent change in the vision, no diplopia, EARS: No earache no tinnitus, NOSE: No epistaxis, No nasal discharge or stuffiness, MOUTH: No sores, no dysphagia, no hoarseness of voice, NECK: No lumps, No swelling in thyroid area. No stiffness. PULMONARY: Cough with scanty white expectorant, No shortness of breath at rest , no hemoptysis, no chest pain, No wheezing. CARDIOVASCULAR: No anginal chest pain, no PND, no orthopnea. No palpitation, no leg edema. No syncope. GASTROINTESTINAL: No abdominal pain, no nausea or vomiting. No diarrhea, No constipation. No blood in stool or black tarry stools. No abdominal distention. UROLOGIC: No burning urination. No hematuria. MUSCULOSKELETAL: Multiple joint pain related to underlying rheumatoid arthritis. HEMATOLOGIC: Mild anemia present, no bleeding disorder, No bruising. . NEUROLOGIC: No seizures, no focal weakness, no speech difficulty, No memory disturbances. Some tingling and numbness of the extremities present PSYCHIATRIC: No depression. No anxiety. No psychosis. Past medical and surgical history: -rheumatoid arthritis, Hepatitis C positive, hypothyroidism, GERD, Social history: She discontinue smoking habit about 5 years back, denies any ETOH abuse. Presently she is disabled. She lives with her mom Family history: Not significant Medications: Please review her chart for detailed list of medications. On exam: - Alert and oriented x3, well built woman, not in any distress. - HEENT: no icterus, no pallor, Throat: Normal. - Neck: No palpable cervical lymphadenopathy. - Chest: clear to auscultation. - Abdomen: soft, nontender, no hepatomegaly, no splenomegaly. - No focal neuro deficit. - Extremities: no finger clubbing, no leg edema. -joint deformity of hands noted Lab: -WBC 4300, H&H of 12.8/38.5, Platelet count of 62,000, MPV 10 (09/07/2016) -WBC 2700, H&H of 12.2/35, platelet count 00020, ANC 593 (04/09/2017) -white blood cell count has remained between 1958-1373 in the last 5 days. -hemoglobin level dropped down to around 10 g/dL, platelet count dropped down to around 31,000 one thousand as of 04/13/2017. -AST 139, ALT 87, alkaline phosphatase 106, Total bilirubin: 0.8, ammonia level 35 (09/07/2006) -AST 163, ALT 59, alkaline phosphatase 104, Total bilirubin: 0.5, BUN/Creat: 7 /0.6 (04/09/2000). -Lyme serology--> negative -influenza negative. Alcohol--> negative -Normal PT and PTT (August,) -WBC 3100, H&H of 10.7/32.4, [place] [address] (04/14/2007) -peripheral smear reviewed by the pathologist, no abnormal or immature WBCs noted, no new suspicious findings noted in the peripheral smear examination. Review of chart from the [facility]: -platelet count was around 100,000-120,000 earlier in 2011. - Platelet count done in 5950-7524--> 100,000-130,000 Imaging: -CT scan of the abdomen and pelvis done on 09/06/2016 showed findings suggestive of cirrhosis of liver with splenomegaly, spleen size measuring about 16 cm. ASSESSMENT AND PLAN: 56-year-old female, who has comorbid conditions mainly longstanding history of rheumatoid arthritis, also has underlying cirrhosis of liver, Hepatitis C positive, splenomegaly on the imaging study in noted measuring about 16 cm, she has longstanding history of mild thrombocytopenia, platelet count was around 100 ,000 few years back, now it has progressively worsened, similarly slightly low white blood cell count noted which has recently worsened, most likely related to the recent some infectious illness. I think her white blood cell count is likely to stay on the lower side, similarly platelet count is also likely to stay on the lower side (because of presence of splenomegaly). No further workup is indicated at this time, she can follow up with her primary- care provider on a regular basis, we can see her in the office as needed. Thanks for the consultation. Dr. Ricardo Mcfadden Hem/Onc (This note was completed using the dictation program Fluency Direct. As such, there may be misspellings, word substitutions, or other variations that should not change the essence of the clinical content of this encounter note. If there is need for further clarification, please direct questions to the provider listed above.) Past Medical/Surgical History Medical Problems: (1) Colitis Status: Acute (2) Diarrhea Status: Acute (3) Neutropenic fever Status: Acute (4) Thrombocytopenia Status: Acute Family History FH: cancer FATHER Social History Smoking Status: Former Smoker Drug Use: none Marital Status: Housing Status: lives with family Occupation Status: unemployed Allergies Coded Allergies: Sulfa Antibiotics (Verified Allergy, Severe, ANAPHYLAXIS, 04/09/17) Sulfamethoxazole w/Trimethoprim (Verified Allergy, Severe, ANAPHYLAXIS, ) Physical Exam Date Time Temp Pulse Resp B/P (MAP) Pulse Ox O2 Delivery O2 Flow Rate FiO2 04/14/17 13:42 36.6 62 16 97 Room Air 04/14/17 08:10 97 Room Air 04/14/17 08:00 Room Air 04/14/17 07:56 36.6 62 16 89/56 (67) 96 Room Air 04/14/17 00:00 36.6 18 99/61 (74) 97 Room Air 04/14/17 00:00 Room Air Laboratory Results Last 24 Hours Test 04/14/17 07:38 White Blood Count 3.15 K/uL Red Blood Count 3.86 M/uL Hemoglobin 10.7 g/dL Hematocrit 32.4 % Mean Corpuscular Volume 83.9 fL Mean Corpuscular Hemoglobin 27.7 pg Mean Corpuscular Hemoglobin Concent 33.0 g/dl Platelet Count 41 K/uL Neutrophils (%) (Auto) 47.6 % Lymphocytes (%) (Auto) 35.2 % Monocytes (%) (Auto) 15.6 % Eosinophils (%) (Auto) 1.0 % Basophils (%) (Auto) 0.6 % Neutrophils # (Auto) 1.50 K/uL Lymphocytes # (Auto) 1.11 K/uL Monocytes # (Auto) 0.49 K/uL Eosinophils # (Auto) 0.03 K/uL Basophils # (Auto) 0.02 K/uL RDW Standard Deviation 45.8 fL RDW Coefficient of Variation 14.8 % Immature Granulocyte % (Auto) 0.0 % Immature Granulocyte # (Auto) 0.00 K/uL Platelet Estimate SIGNIFIC DECREASED Large Platelets 1+
--- NOTE | 2017-04-16 07:35 | Discharge Summary ---
Discharge Summary Date of Service Apr 16, 2017. Discharge Summary Admission Date: Apr 10, 2017 at 00:53 Discharge Date: Apr 14, 2017 Discharge Disposition: Home Principal Diagnosis: Flu like symptoms, likely Upper Respiratory Tract Infection, Viral Etiology Secondary Diagnoses/Problems: Please refer to hospital course below. Procedures: CHEST ONE VIEW PORTABLE CLINICAL HISTORY: Chest pain. COMPARISON STUDY: Chest radiograph September 07, 2016. FINDINGS: Right shoulder arthroplasty is incidentally noted. There is no pneumothorax or pleural effusion. No consolidation is identified. Mild interstitial thickening is similar to exam of September 07, 2016. No consolidation is identified. Cardiomediastinal silhouette is stable with borderline cardiomegaly. IMPRESSION: Mild age indeterminate interstitial thickening which is similar to exam of September 07, 2016. No definite acute findings. Consultations: INFECTIOUS DISEASE DR. CUMMINGS, HEMATOLOGY DR. JOSEP MCFADDEN Pending Studies/Follow-Up: Please refer to hospital course below. Medication Reconciliation New Medications: Prednisone (Prednisone) 5 Mg Tab 5 MG PO DAILY for 30 Days Continued Medications: Cholecalciferol (Vitamin D3) 1,000 Unit Tab 1 TAB PO DAILY for 90 Days, #90 TAB 3 Refills Cyanocobalamin (Vitamin B12) 1,000 Mcg Tab 1000 MCG PO DAILY Dextromethorphan-Phenylephrine (Vicks Dayquil Cold & Flu) 1 Cap Cap 1 CAP PO DIRECTED PRN for COLD & FLU Fexofenadine-Pseudoephedrine (Yazmin-D 24 Hour Allergy) 1 Tab Tab 1 TAB PO DAILY for 30 Days, #30 TAB Levothyroxine Sodium (Synthroid) 25 Mcg Tab 25 MCG PO DAILY, TAB Liothyronine Sodium (Cytomel) 25 Mcg Tab 25 MCG PO DAILY, TAB Omeprazole (Prilosec) 40 Mg Cap 40 MG PO DAILY, CAP Ranitidine (Zantac) 150 Mg Tab 150 MG PO DAILY, TAB Sucralfate (Carafate) 1 Gm Tab 1 GM PO DAILY, TAB Sumatriptan Succinate (Imitrex) 100 Mg Tab 100 MG PO UD PRN for Migraine, TAB Discontinued Medications: Etanercept (Enbrel) 25 Mg Inj 25 MG INJ 2XWK TUESDAYS & FRIDAYS Admission Information HPI (per Admitting provider): PRIMARY CARE PHYSICIAN: Irineo Talley MD. CHIEF COMPLAINT: Dehydration, weakness, cough, chills. HISTORY OF PRESENT ILLNESS: History obtained from patient and records. 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 Recent confinement last August 2016 for pancolitis. The last few days, flu-like symptoms, dry cough, congestion, generalized body aches, nausea and fever. No significant relief with Tylenol. Denies chest pain, or shortness of breath. At the Emergency Room, given vancomycin and Zosyn for possible sepsis. Patient also given Reglan and Benadryl for nausea. Patient currently lethargic. Transient hypoxemia at the ER after IV Benadryl given. Physical Exam (per Admitting): VITAL SIGNS: Blood pressure was noted to be 119/57, pulse 87, respirations 18, temperature 36.8, sats 97 on room air. GENERAL: Noted to be lethargic. No respiratory distress. SKIN: Normal color. Warm. HEENT: Pale palpebral conjunctiva. No ptosis, Dry mucosa. NECK: Supple, nontender. CHEST: Decreased effort. No tenderness. HEART: Regular rate and rhythm. Question of systolic murmur. ABDOMEN: Soft, nontender. EXTREMITIES: No edema. No gross deformities. No tenderness. NEUROLOGIC: Lethargic. No facial asymmetry. Gait and stance not assessed. Hospital Course 56 year old female with history of Juvenile Rheumatoid Arthritis, Chronic Leukopenia and Thrombocytopenia, HCV Flu like symptoms, likely Upper Respiratory Tract Infection, Viral Etiology Meet SIRS criteria on presentation with fever, tachycardia, low wbc Chest xray showed no infiltrate and UA negative Flu Test Negative Procalcitonin negative Blood cx no growth --initially placed on Vanco, Zosyn and Doxycycline felt to have viral upper respiratory tract infection antibiotics discontinued continued to improve Fever, Intermittent - from Viral Illness? Underlying HCV? RA? Infectious Work up unrevealing UA negative Urine cx no growth Blood cx no growth Lyme titer negative -- ID consulted recommend to d/c antibiotics remained afebrile monitor - outpatient treatment for HCV and RA- ff up with Specialists Pancytopenia History of Chronic leukopenia/Thrombocytopenia - from systemic viral illness? - levels are lower compared to last year seems to be gradually improving - on discharge day 04/14/17 WBC 3.15 Hg 10.7 Plt 41 Peripheral Smear done: The main findings present are non-specific leukopenia and thrombocytopenia in keeping with patient history. No overt changes of myelodysplasia or other morphologic abnormalities are present. - consulted Clinic Assistant Dr. Mcfadden likely from bone marrow suppression from viral illness repeat CBC in 1 week ff up with Dr. Mcfadden in 2 weeks Headache No neck stiffness on exam No hallucination or changes in mental status - resolved Elevated AST - improving 163 to 65 monitor History of juvenile rheumatoid arthritis On Enbrel, prednisone - advised to hold Enbrel until ff up with PCP/Instrument And Control Technician Hx HCV/ cirrhosis compensated Disposition d/c home ff up with PCP in 3-5 days Total time spent on discharge = This includes examination of the patient, discharge planning, medication reconciliation, and communication with other providers. Discharge Instructions Discharge Instructions Date of Service Apr 14, 2017. Admission Reason for Admission: Sepsis Discharge Discharge Diagnosis / Problem: FEVER Discharge Goals Goal(s): Diagnostic testing, Therapeutic intervention Activity Recommendations Activity Limitations: as noted below (NO HEAVY EXERTION UNTIL RE-EVALUATED BY PRIMARY CARE PHYSICIAN) Lifting Limitations: until after follow-up appointment Exercise/Sports Limitations: until after follow-up appointment . Instructions / Follow-Up Instructions / Follow-Up PLEASE HOLD ENBREL FOR NOW, UNTIL FOLLOW UP WITH PRIMARY CARE PHYSICIAN. CALL PRIMARY CARE PHYSICIAN OR RETURN TO ER IMMEDIATELY IF WITH RECURRENCE OF SYMPTOMS. DO NOT TAKE ASPIRIN, IBUPROFEN, NAPROXEN UNTIL RE-EVALUATED BY YOUR PRIMARY CARE PHYSICIAN. FOLLOW UP WITH DR. TALLEY ON Wednesday04/19/17 AT 11:00AM. FOLLOW UP WITH SEED DISTRICT SALES MANAGER DR. JOSEP MCFADDEN IN 2 WEEKS. TEL. NO. [phone] FOLLOW UP WITH POSTAL SUPPORT EMPLOYEE AND ENGINEHOUSE BRAKEMAN SCHEDULED. Current Hospital Diet Patient's current hospital diet: AHA Diet (Heart Healthy) Discharge Diet Recommended Diet: AHA Diet (Heart Healthy) Pending Studies Studies pending at discharge: yes List of pending studies: REPEAT BLOOD WORK C/O PRIMARY CARE PHYSICIAN. Medical Emergencies . Who to Call and When: Medical Emergencies: If at any time you feel your situation is an emergency, please call 911 immediately. . Non-Emergent Contact Non-Emergency issues call your: Primary Care Provider Call Non-Emergent contact if: you have a fever, your pain is not controlled, your pain is worsening, you have any medication questions . . "Provider Documentation" section prepared by Jason Castaneda. . VTE Core Measure Inpt VTE Proph given/why not?: SCD's
--- NOTE | 2017-04-16 13:24 | EDITING REQUIRED CODING QUERY ---
SEPSIS To promote full compliance with coding requirements relating to patient care, physician participation is requested in all cases of stoner out uncertainty. Please assist us with the question(s) below: In responding to this query, please exercise your independent professional judgement. The fact that a question is asked does not imply that any particular answer is desired or expected. We appreciate your clarification on this issue. Throughout the medical record, you have clearly documented a localized infection and your patient has clinical evidence of a generalized sepsis or severe sepsis. The term urosepsis is a nonspecific entity and is coded as an UTI. If the patient has sepsis, severe sepsis, from an urinary source or some other source, please clarify in your response below. The medical record reflects the following clinical findings: (With dates as appropriate) (Body temperature of >38.3 C(101 F) or <36 C(96.8F), pulse >90/minute, respirations >20/minute, WBC count >12,000 or <4,000, altered mental status, significant edema or positive fluid balance, hyperglycemia without diabetes, hypotension, metabolic acidosis (elev. lactate level, anion gap or reduced blood pH), shock, positive blood culture (enter organism) ()Bacteremia (Nonspecific laboratory finding of bacteria in the blood) Specify Organism () Present on Admission () Not present on admission () Unable to clinically determine () Septicemia (Systemic disease associated with the presence of pathogenic microorganisms in the blood): Specify Organism () Present on Admission () Not present on admission () Unable to clinically determine (X) Sepsis Specify Organism Specify Associated Condition/Diagnosis (X) Present on Admission () Not present on admission () Unable to clinically determine () Severe Sepsis (Sepsis associated with acute organ dysfunction) Specify Organism Specify Associated Condition/Diagnosis () Present on Admission () Not present on admission () Unable to clinically determine () Septic Shock (Severe sepsis with acute circulatory failure, unexplained by other causes) () Present on Admission () Not present on admission () Unable to clinically determine () Other, patient has:
--- NOTE | 2017-04-16 13:26 | EDITING REQUIRED CODING QUERY ---
PRESENT ON ADMISSION QUERY To promote full compliance with coding requirements relating to pateint care, physician participation is requested in all cases of arbor press operator uncertainty. Please assist us with the question(s) below: Please place an X within the parenthesis (x). The following diagnosis(es) listed in this patient's medical record require physician assistance to determine if they were present on admission (POA) or not. Please advise for each diagnosis whether it was present on admission, not present on admission, or if it was clinically undetermined. 1.Pancytopenia documented on 04/14/17 Progress Note thru Discharge Summary. ( ) Present On Admission ( X) Not Present On Admission ( ) Clinically Undetermined Thank you Viki Kat *Definition of the present on admission (POA)-Present on admission is defined as present at the time the order for inpatient admission occurs. Conditions that develop during an outpatient encounter prior to a written order for inpatient admission (including emergency department, observation, or outpatient surgery) are considered present on admission.
--- NOTE | 2017-04-16 13:28 | EDITING REQUIRED CODING QUERY ---
CODING QUERY To promote full compliance with coding requirements relating to patient care, provider participation is requested in all cases of black leather buffer uncertainty. Please assist us with the question(s) below: Coding Question(s): There is Viral Bronchitis documented in the early chart and later in the record there is Viral URI documented. Please clarify below, in your clinical opinion. ( ) Viral Bronchitis (Lower Respiratory) ( X ) Viral URI ( ) Both Viral Bronchitis and Viral URI Physician's Response(s): Thank you Viki Kat Principal Diagnosis: "_that condition established after study, to be chiefly responsible for occasioning the admission of the patient to the hospital for care." Co-Existing Principal Diagnosis: "_when two or more diagnoses equally meet the criteria for principal diagnosis as determined by the circumstances of admission, diagnostic work up, and/or therapy provided, and the Alphabetic Index, Tabular List, or another coding guideline does not provide sequencing direction, any one of the diagnoses may be sequenced first." "When the physician has documented what appears to be a current diagnosis in the body of the record, but has not included the diagnosis in the final diagnostic statement, the physician should be asked whether the diagnosis should be added." (Source Coding [facility] 2 QTR90. p3-4)
== END 2017-04-14 14:49 | disposition home or self-care (01) | DRG 872 ==
LOC: C.EDB 17:54 → C.4E 04-10 00:53 → ENRESERV 04-10 01:30
PROVIDERS: ADMIT Internal Medicine; ATTEND Internal Medicine
DX: A41.89 Other specified sepsis (principal); J06.9 Acute upper respiratory infection, unspecified; D61.818 Other pancytopenia; B19.20 Unspecified viral hepatitis C without hepatic coma; M08.00 Unspecified juvenile rheumatoid arthritis of unspecified site; R51 Headache; K74.60 Unspecified cirrhosis of liver; E03.9 Hypothyroidism, unspecified; K21.9 Gastro-esophageal reflux disease without esophagitis; Z79.899 Other long term (current) drug therapy; Z79.52 Long term (current) use of systemic steroids; Z86.14 Personal history of Methicillin resistant Staphylococcus aureus infection; Z87.891 Personal history of nicotine dependence; Z88.2 Allergy status to sulfonamides

== ENCOUNTER → 2017-06-07 | Day surgery (SDC) | payer OTHER ==
[2017-06-01 10:29] VITALS: Ht 156.2 cm; Wt 65.0 kg
[~2017-06-07] VITALS: Ht 156.2 cm; Wt 65.0 kg
[~2017-06-07] MED LIST changes: -CIPR-255 PO; -ETAN25IN2 INJ; +ETAN25IN4 SC; +FENTANYL CITRATE INJ 50 MCG/1 ML 2 ML VIAL ONE; +FERRTAB18 PO; +LIDOCAINE HCL 2% 2 ML VIAL (20MG/ML) ONE; +PROPOFOL IV EMULSION 10 MG/ML 20 ML VIAL IV ONE; +SODIUM CHLORIDE 0.9% 500ML 500 ML IV ONE
--- NOTE | 2017-06-07 11:16 | Endo History and Physical ---
History & Physical Date of Service: Jun 07, 2017. Chief Complaint: hepatitis C, cirrhosis of liver Referring Physician: Dr. Irineo Talley History of Present Illness CIrrhosis, variceal screen Past Surgical History Hx Cardiac Surgery: No Hx Internal Defibrillator: No Hx Pacemaker: No Hx Abdominal Surgery: Yes (PARTIAL HYSTERECTOMY, LEFT ABDOMINAL/UNDER BREAST SURGERY/INFECTION) Hx of Implantable Prosthesis: No Hx Post-Op Nausea and Vomiting: No Hx Cancer Surgery: No Hx Thoracic Surgery: No Hx Orthopedic: Yes (RT TSA) Hx Urinary Tract Surgery: No Family History Polyp Social History Smoking Status: Former Smoker Hx Substance Use: No Hx Alcohol Use: No (VERY RARELY) Allergies Coded Allergies: Sulfa Antibiotics (Verified Allergy, Severe, ANAPHYLAXIS, 06/01/17) Sulfamethoxazole w/Trimethoprim (Verified Allergy, Severe, ANAPHYLAXIS, 12/09) Adhesives (Verified Allergy, Unknown, ITCHING IF ON FOR A LONG TIME, ) Ascorbate (Verified Allergy, Unknown, ITCHY ALL OVER, 06/01/17) Biotin (Verified Allergy, Unknown, ITCHY ALL OVER, 06/01/17) Calcium (Verified Allergy, Unknown, ITCHY ALL OVER, 06/01/17) Calcium Phosphate (Verified Allergy, Unknown, ITCHY ALL OVER, 06/01/17) Chloride (Verified Allergy, Unknown, ITCHY ALL OVER, 06/01/17) Chromium (Verified Allergy, Unknown, ITCHY ALL OVER, 06/01/17) Ferrous Fumarate (Verified Allergy, Unknown, ITCHY ALL OVER, 06/01/17) Folic Acid (Verified Allergy, Unknown, ITCHY ALL OVER, 06/01/17) Magnesium Oxide (Verified Allergy, Unknown, ITCHY ALL OVER, 06/01/17) Manganese (Verified Allergy, Unknown, ITCHY ALL OVER, 06/01/17) Niacinamide (Verified Allergy, Unknown, ITCHY ALL OVER, 06/01/17) Phytonadione (Verified Allergy, Unknown, ITCHY ALL OVER, 06/01/17) Pyridoxine (Verified Allergy, Unknown, ITCHY ALL OVER, 06/01/17) Riboflavin (Verified Allergy, Unknown, ITCHY ALL OVER, 06/01/17) Selenium (Verified Allergy, Unknown, ITCHY ALL OVER, 06/01/17) Thiamine (Verified Allergy, Unknown, ITCHY ALL OVER, 06/01/17) Vitamin A (Verified Allergy, Unknown, ITCHY ALL OVER, 06/01/17) Zinc Oxide (Verified Allergy, Unknown, ITCHY ALL OVER, 06/01/17) Uncoded Allergies: METAL (Allergy, Unknown, EARINGS MAKE EAR RED, 06/01/17) Current Medications Reported Home Medications Medications Dose Route/Sig Max Daily Dose Days Date Category Vitron-C (Iron-Vitamin C) 1 Tab Tab 1 Tab PO QAM 06/01/17 Reported Enbrel (Etanercept) 25 Mg/0.5 Ml Inj 1 Dose SC 2XWK 06/01/17 Reported Prednisone 5 Mg Tab 5 Mg PO QAM 06/01/17 Reported Vitamin B12 (Cyanocobalamin) 1,000 Mcg Tab 1,000 Mcg PO QAM 09/07/16 Reported Vitamin D3 (Cholecalciferol) 1,000 Unit Tab 1 Tab PO QAM 09/07/16 Reported Imitrex (Sumatriptan Succinate) 100 Mg Tab 100 Mg PO UD PRN 09/07/16 Reported Yazmin-D 24 Hour Allergy (Fexofenadine-Pseudoephedrine) 1 Tab Tab 1 Tab PO QAM 09/07/16 Reported Zantac (Ranitidine HCl) 150 Mg Tab 150 Mg PO QAM 09/07/16 Reported Prilosec (Omeprazole) 40 Mg Cap 40 Mg PO QAM 09/07/16 Reported Carafate (Sucralfate) 1 Gm Tab 1 Gm PO DIRECTED 09/07/16 Reported Synthroid (Levothyroxine Sodium) 25 Mcg Tab 25 Mcg PO QAM 09/07/16 Reported Cytomel (Liothyronine Sodium) 25 Mcg Tab 25 Mcg PO DIRECTED 09/07/16 Reported Vital Signs Weight (Kilograms): 65 Height (Feet): 5 Height (Inches): 1.5 Date Time Temp Pulse Resp B/P (MAP) Pulse Ox O2 Delivery O2 Flow Rate FiO2 06/07/17 09:07 36.9 88 18 112/77 (89) 98 Room Air Physical Exam General Appearance: WD/WN Respiratory/Chest: Auscultation: breath sounds normal Cardiovascular: Heart Auscultation: RRR Abdomen: Inspection & Palpation: non-distended Assessment and Plan Cirrhosis - EGD for varices screen
--- NOTE | 2017-06-07 11:57 | Discharge Instructions ---
Endoscopy Patient Instructions Date / Procedure(s) Performed Jun 07, 2017. EGD Allergy Information Coded Allergies: Sulfa Antibiotics (Verified Allergy, Severe, ANAPHYLAXIS, 06/01/17) Sulfamethoxazole w/Trimethoprim (Verified Allergy, Severe, ANAPHYLAXIS, 12/09) Adhesives (Verified Allergy, Unknown, ITCHING IF ON FOR A LONG TIME, ) Ascorbate (Verified Allergy, Unknown, ITCHY ALL OVER, 06/01/17) Biotin (Verified Allergy, Unknown, ITCHY ALL OVER, 06/01/17) Calcium (Verified Allergy, Unknown, ITCHY ALL OVER, 06/01/17) Calcium Phosphate (Verified Allergy, Unknown, ITCHY ALL OVER, 06/01/17) Chloride (Verified Allergy, Unknown, ITCHY ALL OVER, 06/01/17) Chromium (Verified Allergy, Unknown, ITCHY ALL OVER, 06/01/17) Ferrous Fumarate (Verified Allergy, Unknown, ITCHY ALL OVER, 06/01/17) Folic Acid (Verified Allergy, Unknown, ITCHY ALL OVER, 06/01/17) Magnesium Oxide (Verified Allergy, Unknown, ITCHY ALL OVER, 06/01/17) Manganese (Verified Allergy, Unknown, ITCHY ALL OVER, 06/01/17) Niacinamide (Verified Allergy, Unknown, ITCHY ALL OVER, 06/01/17) Phytonadione (Verified Allergy, Unknown, ITCHY ALL OVER, 06/01/17) Pyridoxine (Verified Allergy, Unknown, ITCHY ALL OVER, 06/01/17) Riboflavin (Verified Allergy, Unknown, ITCHY ALL OVER, 06/01/17) Selenium (Verified Allergy, Unknown, ITCHY ALL OVER, 06/01/17) Thiamine (Verified Allergy, Unknown, ITCHY ALL OVER, 06/01/17) Vitamin A (Verified Allergy, Unknown, ITCHY ALL OVER, 06/01/17) Zinc Oxide (Verified Allergy, Unknown, ITCHY ALL OVER, 06/01/17) Uncoded Allergies: METAL (Allergy, Unknown, EARINGS MAKE EAR RED, 06/01/17) Discharge Date / Findings Jun 07, 2017. Normal exam - no gastric ulcers, no varices, no portal gastropathy Provider Instructions Activity Restrictions - No exercising or heavy lifting for 24 hours. - Do not drink alcohol the day of the procedure. - Do not drive a car or operate machinery until the day after the procedure. - Do not make any important decisions or sign important papers in 24 hours after the procedure. Following Day: - Return to full activity which may include returning to work/school. Diet Start your diet with liquids and light foods (jello, soup, juice, toast). Then eat your usual diet if not nauseated. Treatment For Common After Affects For mild abdominal pain, bloating, or excessive gas: - Rest - Eat lightly - Lie on right side Follow-Up Information Follow-up with Dr. Irineo Talley as scheduled Anesthesia Information What You Should Know You have had a procedure that required some medicine to reduce anxiety and discomfort. This treatment is called moderate sedation. After receiving the treatment, you may be sleepy, but you will be able to breathe on your own. The effects of the treatment may last for several hours. Follow these instructions along with Activity/Diet recommendations noted above: * Do NOT do anything where dizziness or clumsiness would be dangerous. * Rest quietly at home today, then you can be up and about tomorrow. * Have a responsible person stay with you the rest of today. * You may have had an I.V. today. If so, you may take the dressing off later today. Recommendations Call your doctor if: * Trouble breathing * Continuous vomiting for more than 24 hours * Temperature above 101 degrees * Severe abdominal pain or bloating * Pain not relieved by pain medicine ordered * There is increased drainage or redness from any incision * A large amount of rectal bleeding greater than 2-3 tablespoons. (If you had a polyp/s removed or have hemorrhoids, a small amount of blood - from the rectum is to be expected.) * You have any unanswered questions or concerns. IN THE EVENT OF A SERIOUS EMERGENCY, GO TO THE NEAREST EMERGENCY ROOM Your discharge instructions were prepared by provider Nohemi Aranda. Patient Instructions Signature Page Aleta Catherine Patient (or Guardian) Signature/Date: I have read and understand the instructions given to me by my caregivers. Caregiver/RN/Doctor Signature/Date: The above-named patient and/or guardian has received patient instructions on this date. + Original Patient Signature Page (only) stays with chart. Please make copy for patient.
[2017-06-07 12:08] VITALS: BP 109/85; PULSE 81; O2SAT 97
--- NOTE | 2017-06-07 12:33 | Anesthesiology Progress Note ---
Anesthesia Post Op Note Date & Time Jun 07, 2017 at 12:33 Vital Signs Pain Intensity: 0 Vital Signs Past 12 Hours Date Time Temp Pulse Resp B/P (MAP) Pulse Ox O2 Delivery O2 Flow Rate FiO2 06/07/17 12:08 81 18 109/85 (93) 97 Room Air 06/07/17 11:53 76 18 104/75 (85) 97 Room Air 06/07/17 11:38 77 18 88/47 (61) 97 Room Air 06/07/17 09:07 36.9 88 18 112/77 (89) 98 Room Air Notes Mental Status: alert / awake / arousable, participated in evaluation Pt Amnestic to Procedure: Yes Nausea / Vomiting: adequately controlled Pain: adequately controlled Airway Patency, RR, SpO2: stable & adequate BP & HR: stable & adequate Hydration State: stable & adequate Anesthetic Complications: no major complications apparent
--- NOTE | 2017-06-07 13:17 | GI REPORT ---
Procedure Date: 06/07/2017 11:12 AM Procedure: Upper GI endoscopy Indications: Cirrhosis rule out esophageal varices Medicines: See the Anesthesia note for documentation of the administered medications Complications: No immediate complications. Estimated Blood Loss: Estimated blood loss: none. Procedure: Pre-Anesthesia Assessment: - ASA Grade Assessment: III - A patient with severe systemic disease. After obtaining informed consent, the endoscope was passed under direct vision. Throughout the procedure, the patient's blood pressure, pulse, and oxygen saturations were monitored continuously. The scope was introduced through the mouth, and advanced to the second part of duodenum. The upper GI endoscopy was accomplished without difficulty. The patient tolerated the procedure well. Findings: The examined esophagus was normal. The stomach was normal. The examined duodenum was normal. Impression: - Normal esophagus. - Normal stomach. - Normal examined duodenum. - No specimens collected. Recommendation: - Discharge patient to home. Nohemi Glaser M.D. Nohemi Glaser MD 06/07/2017 12:54:23 PM This report has been signed electronically. Note Initiated On: 06/07/2017 11:12 AM I attest to the content of the Intraoperative Record and orders documented therein, exceptions below
== END | disposition home or self-care (01) ==
LOC: C.GI 07:59
PROVIDERS: ATTEND Internal Medicine Gastroenterology
DX: K74.60 Unspecified cirrhosis of liver (principal); B19.20 Unspecified viral hepatitis C without hepatic coma; E03.9 Hypothyroidism, unspecified; Z90.711 Acquired absence of uterus with remaining cervical stump; Z79.899 Other long term (current) drug therapy; Z98.890 Other specified postprocedural states; Z87.891 Personal history of nicotine dependence; Z88.2 Allergy status to sulfonamides; Z88.8 Allergy status to other drugs, medicaments and biological substances; Z96.619 Presence of unspecified artificial shoulder joint; Z79.52 Long term (current) use of systemic steroids; Z83.71 Family history of colonic polyps